=== PATIENT | male | born 1965 | race Two or more races ===

== ENCOUNTER 2020-05-30 08:12 | Outpatient (REF) | payer OTHER, SELFPAY ==
[2020-05-30 09:34] LABS: MANUAL DIFF FLAG NO
[2020-05-30 10:09] LABS: Alanine Aminotransferase 21 U/L (0-40); Alkaline Phosphatase 73 U/L (39-117); Anion Gap 9 (12-20); Aspartate Amino Transferase 19 U/L (5-37); Bilirubin Total 0.9 mg/dL (0.0-1.0); Blood Urea Nitrogen 11 mg/dL (9-16); Calcium 8.9 mg/dL (8.4-10.2); Carbon Dioxide 30 mmol/L (22-29); Chloride 105 mmol/L (96-108); Cholesterol 211 mg/dL; Estimated Glomerular Filt Rate > 60; Glucose Fasting 95 mg/dL (60-99); HDL Cholesterol 45 mg/dL; LDL Cholesterol Calculated 152 mg/dl; Potassium 4.3 mmol/l (3.3-5.1); Sodium 140 mmol/L (135-145); Total Protein 7.2 g/dL (6.5-8.0); Triglycerides 74 mg/dL
[2020-05-30 10:46] LABS: Basophils Percent Auto 0.8 % (0-2); Eosinophils Absolute Auto 0.2 X10*3/uL (0.0-0.4); Eosinophils Percent Auto 4.6 % (0-4); Hematocrit 42.7 % (42-52); Hemoglobin 13.9 g/dl (14.0-18.0); Imm Gran Abs Auto 0.01 X10*3/uL (0.00-0.03); Imm Gran Pct Auto 0.2 % (0.0-0.4); Lymphocytes Absolute Auto 1.8 X10*3/uL (1.2-4.9); Lymphocytes Percent Auto 34.4 % (20-40); Mean Corpuscular HGB Conc 32.6 g/dl (31.0-36.0); Mean Corpuscular Hemoglobin 30.3 pg (27.0-33.0); Mean Corpuscular Volume 93.2 fL (80-98); Mean Platelet Volume 11.9 fL (9.4-12.4); Monocytes Absolute Auto 0.5 X10*3/uL (0.1-1.2); Monocytes Percent Auto 9.8 % (2-11); Neutrophils Absolute Auto 2.6 X10*3/uL (2.0-8.3); Neutrophils Percent Auto 50.2 % (45-73); Platelet Count 223 X10*3/uL (160-400); Red Blood Count 4.58 X10*6/uL (4.60-5.80); Red Cell Distribution Width 12.3 % (11.0-16.0); White Blood Count 5.2 X10*3/uL (4.8-10.8)
== END 2020-05-30 08:13 | disposition home or self-care (01) ==
LOC: HO.LAB 08:12
PROVIDERS: Visit Provider Nurse Practitioner Family
DX: E78.00 Pure hypercholesterolemia, unspecified (principal); M79.18 Myalgia, other site
CPT/HCPCS: 36415; 80053; 80061; 85025

== ENCOUNTER 2020-07-23 11:22 | Emergency (ER) | payer OTHER, SELFPAY ==
--- NOTE | ~2020-07-23 | CT_ITS ---
EXAMINATION: CT ABDOMEN AND PELVIS WITH CONTRAST CLINICAL INFORMATION: Vomiting. Covid positive. COMPARISON: None TECHNIQUE: Multidetector volumetric images were obtained from the superior aspect of the liver through the pubic symphysis following administration 85 mL of Omnipaque 350 intravenous contrast. Sagittal and coronal reformatted images were obtained on the technologist's workstation. Oral contrast: Yes This CT examination was performed using dose optimization techniques as appropriate, variously including the following: *Automated exposure control *Adjustment of mA and/or kV according to patient size (this includes techniques or standardized protocols for targeted exams where dose is matched to indication/reason for exam; i.e. extremities or head) *Use of iterative reconstruction technique DLP: 579 mGy-cm FINDINGS: LUNG BASES: There is increased peripheral attenuation and interstitial markings at the lung bases. Appearance is compatible with diagnosis of Covid infection. The heart is slightly enlarged. LIVER, GALLBLADDER, AND BILIARY TREE: The liver is normal in size, shape, and attenuation. There is a small calcification in the right lobe of the liver. No focal hepatic lesion or biliary ductal dilatation is present. The gallbladder has been removed. PANCREAS: Unremarkable. SPLEEN: Unremarkable. ADRENAL GLANDS: Unremarkable. KIDNEYS AND URETERS: There is a 1.3 cm cyst in the midpole. There is mild left hydronephrosis and left proximal ureteral dilatation. No stone is seen. The right kidney is unremarkable. Bladder is not optimally distended but appears unremarkable. BLADDER: Unremarkable. GASTROINTESTINAL TRACT: There is mild diverticulosis of the colon. Small and large bowel is otherwise unremarkable. The appendix is unremarkable. Stomach is unremarkable. ABDOMINAL WALL: No significant hernia is appreciated. LYMPH NODES: Normal. VASCULAR: Unremarkable. PELVIC VISCERA: Unremarkable. OSSEOUS STRUCTURES: There are mild degenerative changes. CT/CT abdomen pelvis w con IMPRESSION: Increased peripheral attenuation and interstitial markings compatible with diagnosis of Covid infection. Upper normal-size heart. Mild diverticulosis of the colon. Mild left hydronephrosis and proximal ureteral dilatation. No stone seen. 1.3 cm left renal cyst.
--- NOTE | ~2020-07-23 | XR_ITS ---
EXAMINATION: XR CHEST CLINICAL INFORMATION: Fever and tachycardia. COMPARISON: None TECHNIQUE: Frontal view of the chest was obtained. FINDINGS: The lungs are well-expanded with reticular interstitial prominence bilaterally. No consolidation seen. There is no pleural effusion. The heart size is borderline enlarged. Pulmonary vascularity is normal. No gross bony abnormality. XR/XR chest 1V IMPRESSION: Bilateral increase interstitial prominence but no pneumonic consolidation seen.
[2020-07-23 11:34] VITALS: BP 171/80; PULSE 107; RESP 20; TEMP 38.3; O2SAT 98; BMI 28.2
--- NOTE | 2020-07-23 11:42 | ECG_ITS ---
Test Reason : CP Blood Pressure : / mmHG Vent. Rate : 096 BPM Atrial Rate : 096 BPM P-R Int : 164 ms QRS Dur : 076 ms QT Int : 324 ms P-R-T Axes : 055 -09 -13 degrees QTc Int : 409 ms Normal sinus rhythm Moderate voltage criteria for LVH, may be normal variant Nonspecific T wave abnormality Abnormal ECG No previous ECGs available Referred By: Hope Manjarrez Electronically Signed By:HEDY MURILLO
--- NOTE | 2020-07-23 11:52 | ED_ITS ---
HPI - Nausea/Vomiting/Diarrhea General Chief complaint: Nausea/Vomiting/Diarrhea Stated complaint: stomach pain,covid pos 12 days Time Seen by Provider: 07/23/20 11:37 Source: patient Mode of arrival: ambulatory Limitations: no limitations History of Present Illness HPI Narrative: 55-year-old male with a past medical history of high cholesterol, hypertension known COVID positive 12 days ago here with epigastric pain with vomiting and nausea times 10 days. The patient tells me he is taking Zofran at home with continued symptoms. He has had intermittent fevers during his illness. He denies any cough, shortness of breath, chest pain. Denies any diarrhea or urinary symptoms. Emesis is NBNB. MD elicited complaint: nausea, vomiting and abdominal pain Onset (ago): day(s) Associated nausea: Yes Associated abdominal pain: Yes Location of pain: epigastric Severity: mild Associated symptoms: fever/chills and nausea/vomiting Related Data Home Medications Medication Instructions Recorded Confirmed atorvastatin 10 mg tablet 10 mg PO BEDTIME 05/18/20 tamsulosin 0.4 mg capsule 0.4 mg PO BEDTIME 05/18/20 Previous Rx's Medication Instructions Recorded cyclobenzaprine 10 mg tablet 10 mg PO BEDTIME 30 Days #30 tab 05/18/20 nitrofurantoin macrocrystal 100 mg 100 mg PO Q12H 10 Days #20 cap 05/18/20 capsule gabapentin 300 mg capsule 300 mg PO BID #60 cap 06/17/20 omeprazole 40 mg PO DAILY #20 cap 07/23/20 ondansetron 4 mg PO Q6H PRN #20 tab 07/23/20 promethazine 25 mg tablet 25 mg PO TID PRN 7 Days #21 tab 07/23/20 sucralfate [Carafate] 1 g PO .achs #20 tab 07/23/20 Allergies Allergy/AdvReac Type Severity Reaction Status Date / Time aspirin Allergy cause anal Verified 05/18/20 16:15 bleeding Review of Systems Review of Systems: Yes all other systems are reviewed and are negative Constitutional: Constitutional: Reports no additional constitutional complaints, Denies body ache(s), Denies chills, Denies fever(s), Denies headache(s) and Denies weakness Eyes: Eyes: Reports no additional eye complaints and Denies change in vision ENT: Reports system reviewed and no additional complaints, except as documented, Denies dizziness, Denies headache(s), Denies nasal congestion, Denies nasal discharge and Denies neck pain Cardiovascular: Cardiovascular: Reports no additional cardiovascular complaints, Denies chest pain, Denies leg edema and Denies dyspnea Respiratory: Respiratory: Reports no additional respiratory complaints, Denies cough and Denies dyspnea Gastrointestinal: Gastrointestinal: Reports abdominal pain, Denies coffee ground emesis, Denies diarrhea, Reports nausea and Reports vomiting Genitourinary: Genitourinary: Denies urinary incontinence Musculoskeletal: Musculoskeletal: Reports no additional musculoskeletal complaints, Denies back pain, Denies arthralgias, Denies joint swelling, Denies neck pain, Denies numbness and Denies tingling Integumentary/Breasts: Skin/Breast: Reports system reviewed and no additional complaints, except as docu and Denies rash Neurologic: Reports system reviewed and no additional complaints, except as documented, Denies Abnormal speech present, Denies dizziness, Denies headache(s), Denies numbness, Denies tingling and Denies weakness PMFSH Past Medical History Attestation statement: The following information was validated with the patient. Source: old records reviewed and nursing notes reviewed Medical History High cholesterol HTN (hypertension) Intercostal myalgia UTI (urinary tract infection) Surgical History History of appendectomy Social History Social History Smoking Status: Never smoker Use of substances other than those prescribed or required for medical reasons: No Advance Directives: No Advance Directives Information Provided: No Physical Exam Vital Signs: Vital Signs: Last Vital Signs Temp 99.9 F 07/23/20 14:10 Pulse 101 H 07/23/20 14:10 Resp 18 07/23/20 14:10 BP 137/76 07/23/20 14:10 Pulse Ox 97 07/23/20 14:10 Body Mass Index 28.2 Const: General: cooperative, healthy appearing, comfortable and no acute distress Orientation/consciousness: patient oriented x3 Limitations: no limitations HENMT: Head: Yes normal to inspection Ears: hearing grossly normal bilatera lly General nose exam: Normal external nose present Face and sinus: Yes normal facial exam Mouth: Normal oral and palatal mucosa present Throat: Yes posterior oropharynx normal Eyes: General: appearance normal, both eyes and all related structures Pupils: Equal, round and reactive pupils present Neck: Neck: Yes normal visual inspection Chest: Chest palpation & inspection: normal inspection of the chest Resp: Effort & Inspection: normal respiratory effort Auscultation: clear to auscultation bilaterally Cardio: Rate: regular rate Rhythm: regular rhythm Peripheral pulses: Peripheral pulses 2+ throughout GI: Inspection: Yes normal to inspection Palpation (GI): Soft to palpation and Tenderness to palpation present (GI) (No rebound or guarding) in the epigastrum (Moderate) Auscultation: normal bowel sounds Back/Spine/Pelvis: Thoracic/Lumbar Spine: thoracic and lumbar spine normal to inspection Skin: General skin exam: no rashes or lesions noted Neuro: General: patient oriented x3, no focal motor deficits and normal sensation to monofilament Cranial nerves: Yes Equal, round and reactive pupils present Cognition (Neuro): normal cognition Speech: No Abnormal speech present Gait exam (Neuro): Normal gait present Motor exam (neuro): 5/5 motor strength present throughout Extrem: General: Yes normal to inspection Course Course Course Narrative: 55-year-old male known COVID positive here with epigastric pain with vomiting for 10 days. Unable to maintain p.o. despite Zofran sublingual at home. Intermittent fevers throughout course of illness. On arrival moderate epigastric tenderness. Patient is febrile and tachycardic on arrival. This is from a viral infection. Will check labs, UA, EKG. Give normal saline bolus, antiemetic, analgesia, antipyretic and re-assess. 1315-continued pain and vomiting despite medication. Will check imaging to rule out underlying pathology. 1430-CT scan is consistent with COVID. No other acute findings. Patient feels improved and is tolerating p.o.. Likely gastritis versus gastric ulcer which is stressed induced from viral illness. Discussed starting patient on PPI and also given Carafate and Zofran SL prn. Refer patient to GI for follow-up. Reviewed worrisome signs and symptoms of when to return to the emergency department. Comfortable discharge home. MDM - Nausea/Vomiting/Diarrhea MDM Narrative Medical decision making narrative: Gastritis, gastric ulcer, viral syndrome, acs, cholecystitis/lithiasis, pancreatitis. Less likely ACS with unremarkable EKG which shows no acute ischemic changes and no reports of chest pain. Less likely cholecystitis or cholelithiasis with unremarkable CT and no right upper quadrant tenderness. Less likely pancreatitis with negative lipase and CT which shows no acute finding. Medical Records Attestation: I reviewed the patient's medical records. Lab Data Attestation: I reviewed the patient's lab results. Result diagrams: 07/23/20 12:02 07/23/20 12:02 Labs: Lab Results 07/23/20 07/23/20 07/23/20 Range/Units 12:02 12: 12:02 WBC 8.5 (4.8-10.8) X10*3/uL RBC 4.54 L (4.60-5.80) X10*6/uL Hgb 13.6 L (14.0-18.0) g/dl Hct 41.6 L (42-52) % MCV 91.6 (80-98) fL MCH 30.0 (27.0-33.0) pg MCHC 32.7 (31.0-36.0) g/dl RDW 12.3 (11.0-16.0) % Plt Count 225 (160-400) X10*3/uL MPV 10.9 (9.4-12.4) fL Immature Gran % (Auto) 0.4 (0.0-0.4) % Neut % (Auto) 83.7 H (45-73) % Lymph % (Auto) 9.3 L (20-40) % [place] % (Auto) 6.5 (2-11) % Eos % (Auto) 0.0 (0-4) % Baso % (Auto) 0.1 (0-2) % Lymph # (Auto) 0.8 L (1.2-4.9) X10*3/uL [place] # (Auto) 0.6 (0.1-1.2) X10*3/uL Eos # (Auto) 0.0 (0.0-0.4) X10*3/uL Baso # (Auto) 0.0 (0.0-0.2) X10*3/uL Abs Immat Gran (auto) 0.03 (0.00-0.03) X10*3/uL Absolute Neuts (auto) 7.1 (2.0-8.3) X10*3/uL Absolute Nucleated RBC 0.000 (0.0-0.012) X10*3/uL Nucleated RBC % (auto) 0.0 (0.0-0.2) /100WBC Sodium 137 (135-145) mmol/L Potassium 3.8 (3.3-5.1) mmol/L Chloride 97 (96-108) mmol/L Carbon Dioxide 29 (22-29) mmol/L Anion Gap 15 (12-20) BUN 10 (9-16) mg/dL Creatinine 1.29 (0.5-1.4) mg/dL Estim Creat Clear Calc 62.5 Estimated GFR 57 Random Glucose 105 (60-115) mg/dL Lactic Acid 1.6 (0.5-2.0) mmol/L Calcium 8.8 (8.4-10.2) mg/dL Magnesium 2.2 (1.6-2.6) mg/dL Total Bilirubin 0.7 (0.0-1.0) mg/dL Direct Bilirubin 0.3 (0.0-0.5) mg/dL AST 71 H (5-37) U/L ALT 102 H (0-40) U/L Alkaline Phosphatase 120 H D (39-117) U/L Total Protein 7.6 (6.5-8.0) g/dL Albumin 4.0 (3.5-5.0) g/dL Lipase (8-78) U/L Urine Color Urine Appearance Urine pH (5.0-8.0) Ur Specific [place] (1.005-1.025) Urine Protein (NEG-TRACE) MG/DL Urine Glucose (UA) (NEG) MG/DL Urine Ketones (NEG) MG/DL Urine Blood (NEG) Urine Nitrite (NEG) Ur Leukocyte Esterase (NEG) 07/23/20 07/23/20 Range/Units 12:02 13:00 WBC (4.8-10.8) X10*3/uL RBC (4.60-5.80) X10*6/uL Hgb (14.0-18.0) g/dl Hct (42-52) % MCV (80-98) fL MCH (27.0-33.0) pg MCHC (31.0-36.0) g/dl RDW (11.0-16.0) % Plt Count (160-400) X10*3/uL MPV (9.4-12.4) fL Immature Gran % (Auto) (0.0-0.4) % Neut % (Auto) (45-73) % Lymph % (Auto) (20-40) % [place] % (Auto) (2-11) % Eos % (Auto) (0-4) % Baso % (Auto) (0-2) % Lymph # (Auto) (1.2-4.9) X10*3/uL [place] # (Auto) (0.1-1.2) X10*3/uL Eos # (Auto) (0.0-0.4) X10*3/uL Baso # (Auto) (0.0-0.2) X10*3/uL Abs Immat Gran (auto) (0.00-0.03) X10*3/uL Absolute Neuts (auto) (2.0-8.3) X10*3/uL Absolute Nucleated RBC (0.0-0.012) X10*3/uL Nucleated RBC % (auto) (0.0-0.2) /100WBC Sodium (135-145) mmol/L Potassium (3.3-5.1) mmol/L Chloride (96-108) mmol/L Carbon Dioxide (22-29) mmol/L Anion Gap (12-20) BUN (9-16) mg/dL Creatinine (0.5-1.4) mg/dL Estim Creat Clear Calc Estimated GFR Random Glucose (60-115) mg/dL Lactic Acid (0.5-2.0) mmol/L Calcium (8.4-10.2) mg/dL Magnesium (1.6-2.6) mg/dL Total Bilirubin (0.0-1.0) mg/dL Direct Bilirubin (0.0-0.5) mg/dL AST (5-37) U/L ALT (0-40) U/L Alkaline Phosphatase (39-117) U/L Total Protein (6.5-8.0) g/dL Albumin (3.5-5.0) g/dL Lipase 30 (8-78) U/L Urine Color YELLOW Urine Appearance CLEAR Urine pH 5.0 (5.0-8.0) Ur Specific [place] >= 1.030 H (1.005-1.025) Urine Protein NEG (NEG-TRACE) MG/DL Urine Glucose (UA) 500 H (NEG) MG/DL Urine Ketones NEG (NEG) MG/DL Urine Blood NEG (NEG) Urine Nitrite NEG (NEG) Ur Leukocyte Esterase NEG (NEG) Imaging Data Chest x-ray: Attestation: I personally reviewed and interpreted this imaging study as follows: Radiologist's impression: [address] [id number] ReportSigned Patient: Benito LugoR#: [id number]: 1965Acct:[id number]/Sex: 55 / MADM Date: 07/23/20Loc: [address]: Ordering Physician: BETZAIDA EVERETT NP Date of Service: 07/23/20 Procedure(s): XR chest 1V Accession Number(s): [id number] cc: BETZAIDA EVERETT NP~ EXAMINATION: XR CHEST CLINICAL INFORMATION: Fever and tachycardia. COMPARISON: None TECHNIQUE: Frontal view of the chest was obtained. FINDINGS: The lungs are well-expanded with reticular interstitial prominence bilaterally. No consolidation seen. There is no pleural effusion. The heart size is borderline enlarged. Pulmonary vascularity is normal. No gross bony abnormality. XR/XR chest 1V IMPRESSION: Bilateral increase interstitial prominence but no pneumonic consolidation seen. CT scan - abdomen: Attestation: I personally reviewed and interpreted this imaging study as follows: Radiologist's impression: [address] [id number] Scan ReportSigned Patient: Benito LugoR#: [id number]: 1965Acct:[id number]/Sex: 55 / MADM Date: 07/23/20Loc: [address]: Ordering Physician: BETZAIDA EVERETT NP Date of Service: 07/23/20 Procedure(s): CT abdomen pelvis w con Accession Number(s): [id number] cc: BETZAIDA EVERETT [employer]~ EXAMINATION: CT ABDOMEN AND PELVIS WITH CONTRAST CLINICAL INFORMATION: Vomiting. Covid positive. COMPARISON: None TECHNIQUE: Multidetector volumetric images were obtained from the superior aspect of the liver through the pubic symphysis following administration 85 mL of Omnipaque 350 intravenous contrast. Sagittal and coronal reformatted images were obtained on the technologist's workstation. Oral contrast: Yes This CT examination was performed using dose optimization techniques as appropriate, variously including the following: *Automated exposure control *Adjustment of mA and/or kV according to patient size (this includes techniques or standardized protocols for targeted exams where dose is matched to indication/reason for exam; i.e. extremities or head) *Use of iterative reconstruction technique DLP: 579 mGy-cm FINDINGS: LUNG BASES: There is increased peripheral attenuation and interstitial markings at the lung bases. Appearance is compatible with diagnosis of Covid infection. The heart is slightly enlarged. LIVER, GALLBLADDER, AND BILIARY TREE: The liver is normal in size, shape, and attenuation. There is a small calcification in the right lobe of the liver. No focal hepatic lesion or biliary ductal dilatation is present. The gallbladder has been removed. PANCREAS: Unremarkable. SPLEEN: Unremarkable. ADRENAL GLANDS: Unremarkable. KIDNEYS AND URETERS: There is a 1.3 cm cyst in the midpole. There is mild left hydronephrosis and left proximal ureteral dilatation. No stone is seen. The right kidney is unremarkable. Bladder is not optimally distended but appears unremarkable. BLADDER: Unremarkable. GASTROINTESTINAL TRACT: There is mild diverticulosis of the colon. Small and large bowel is otherwise unremarkable. The appendix is unremarkable. Stomach is unremarkable. ABDOMINAL WALL: No significant hernia is appreciated. LYMPH NODES: Normal. VASCULAR: Unremarkable. PELVIC VISCERA: Unremarkable. OSSEOUS STRUCTURES: There are mild degenerative changes. CT/CT abdomen pelvis w con IMPRESSION: Increased peripheral attenuation and interstitial markings compatible with diagnosis of Covid infection. Upper normal-size heart. Mild diverticulosis of the colon. Mild left hydronephrosis and proximal ureteral dilatation. No stone seen. 1.3 cm left renal cyst. ECG Data ECG interpretation date: 07/23/20 ECG interpretation time: 12:57 Interpretation: NSR, rate 96, normal pr, normal qrs, normal st Discharge Plan Discharge Clinical Impression: Gastritis, COVID-19 Patient Disposition: Home, Self-Care Instructions: Gastritis (ED), COVID-19 (Coronavirus Disease 2019) (ED) Additional Instructions: Very bland diet. Eat things like boiled chicken and plain white rice and crackers and toast. Do not eat fatty, greasy, citrus foods. Avoid dairy, caffeine, alcohol or smoking. Follow-up with gastroenterology once cleared from [facility] Prescriptions: New sucralfate [Carafate] 1 gram tablet 1 g PO .achs Qty: 20 RF: 0 omeprazole 40 mg capsule,delayed release(DR/EC) 40 mg PO DAILY Qty: 20 RF: 0 ondansetron 4 mg tablet,disintegrating 4 mg PO Q6H PRN (Reason: nausea and vomiting) Qty: 20 RF: 0 No Action gabapentin 300 mg capsule 300 mg PO BID Qty: 60 RF: 0 promethazine 25 mg tablet 25 mg PO TID PRN (Reason: nausea and vomiting) 7 Days Qty: 21 RF: 0 atorvastatin 10 mg tablet 10 mg PO BEDTIME RF: 0 tamsulosin 0.4 mg capsule 0.4 mg PO BEDTIME RF: 0 nitrofurantoin macrocrystal 100 mg capsule 100 mg PO Q12H 10 Days Qty: 20 RF: 0 cyclobenzaprine 10 mg tablet 10 mg PO BEDTIME 30 Days Qty: 30 RF: 0 Referrals: Eugenio Pittman MD [Physician] - 2 days
[2020-07-23] MEDS: Acetaminophen 325 MG TABLET 975 MG PO (12:17)
[2020-07-23] MEDS: Famotidine/PF 20 MG/2 ML VIAL IVPUSH (12:18)
[2020-07-23] MEDS: ondansetron HCL 4 MG/2 ML VIAL IVPUSH (12:18)
[2020-07-23] MEDS: 0.9 % Sodium Chloride 2,500 ML 999 ML IV (12:22)
[2020-07-23 12:25] LABS: MANUAL DIFF FLAG NO
[2020-07-23 12:33] LABS: Basophils Percent Auto 0.1 % (0-2); Hematocrit 41.6 % (42-52); Hemoglobin 13.6 g/dl (14.0-18.0); Imm Gran Abs Auto 0.03 X10*3/uL (0.00-0.03); Imm Gran Pct Auto 0.4 % (0.0-0.4); Lymphocytes Absolute Auto 0.8 X10*3/uL (1.2-4.9); Lymphocytes Percent Auto 9.3 % (20-40); Mean Corpuscular HGB Conc 32.7 g/dl (31.0-36.0); Mean Corpuscular Volume 91.6 fL (80-98); Mean Platelet Volume 10.9 fL (9.4-12.4); Monocytes Absolute Auto 0.6 X10*3/uL (0.1-1.2); Monocytes Percent Auto 6.5 % (2-11); Neutrophils Absolute Auto 7.1 X10*3/uL (2.0-8.3); Neutrophils Percent Auto 83.7 % (45-73); Platelet Count 225 X10*3/uL (160-400); Red Blood Count 4.54 X10*6/uL (4.60-5.80); Red Cell Distribution Width 12.3 % (11.0-16.0); White Blood Count 8.5 X10*3/uL (4.8-10.8)
[2020-07-23 12:39] LABS: Lactic Acid 1.6 mmol/L (0.5-2.0)
[2020-07-23 13:10] LABS: Lipase 30 U/L (8-78)
[2020-07-23 13:15] LABS: Alanine Aminotransferase 102 U/L (0-40); Alkaline Phosphatase 120 U/L (39-117); Anion Gap 15 (12-20); Aspartate Amino Transferase 71 U/L (5-37); Bilirubin Direct 0.3 mg/dL (0.0-0.5); Bilirubin Total 0.7 mg/dL (0.0-1.0); Blood Urea Nitrogen 10 mg/dL (9-16); Calcium 8.8 mg/dL (8.4-10.2); Carbon Dioxide 29 mmol/L (22-29); Chloride 97 mmol/L (96-108); Creatinine Clr Calc Pharmacy 62.5; Estimated Glomerular Filt Rate 57; Glucose Random 105 mg/dL (60-115); Magnesium 2.2 mg/dL (1.6-2.6); Potassium 3.8 mmol/L (3.3-5.1); Sodium 137 mmol/L (135-145); Total Protein 7.6 g/dL (6.5-8.0)
[2020-07-23 13:38] LABS: Appearance Urine CLEAR; Color Urine YELLOW; Glucose Urine UA 500 MG/DL (NEG); Leukocyte Esterase Urine NEG (NEG); Nitrite Urine NEG (NEG); Specific Gravity - Urine >= 1.030 (1.005-1.025); Urine Blood NEG (NEG); Urine Ketones NEG (NEG); Urine Protein NEG (NEG-TRACE)
[2020-07-23 14:10] VITALS: BP 137/76; PULSE 101; RESP 18; TEMP 37.7; O2SAT 97
--- NOTE | 2020-07-23 14:12 | PC.NURSE ---
pt back from ct, reports nausea improved but the pain still there about 8/10 at this time, vs stable
[2020-07-23] MEDS: iohexoL 350 MG/ML 100 ML INFUS..BTL 85 ML IV (14:15)
--- NOTE | 2020-07-23 15:16 | PC.NURSE ---
pt tolerating po, no vomiting since his arrival in the ed
[2020-07-23] MEDS: Lidocaine HCl Viscous 2 % 15 ML SOLUTION MUCOUS MEM (15:29)
[2020-07-23] MEDS: Magnesium Hydrox/Alum Hydrox 30 ML ORAL.SUSP PO (15:29)
[2020-07-23 16:00] VITALS: BP 120/70; PULSE 90; RESP 18; TEMP 37.2; O2SAT 97
== END 2020-07-23 17:45 | disposition home or self-care (01) ==
PROVIDERS: Nurse Practitioner Family; Emergency Provider Emergency Medicine; PCP Internal Medicine
DX: K29.70 Gastritis, unspecified, without bleeding (principal); K57.90 Diverticulosis of intestine, part unspecified, without perforation or abscess without bleeding; Z86.16 Personal history of COVID-19; R50.9 Fever, unspecified; R00.0 Tachycardia, unspecified; N28.1 Cyst of kidney, acquired; N13.30 Unspecified hydronephrosis; I10 Essential (primary) hypertension; Z87.440 Personal history of urinary (tract) infections
CPT/HCPCS: 36415; 71045; 74177; 80048; 80076; 81003; 83605; 83690; 83735; 85025; 87040; 93005; 96361; 96374; 96375; 99284; J2405; Q9967

== ENCOUNTER 2020-07-24 11:30 | Emergency (ER) | payer OTHER, SELFPAY ==
[2020-07-24 11:45] VITALS: BP 135/75; PULSE 88; RESP 18; TEMP 37.4; O2SAT 96; BMI 28.2
--- NOTE | 2020-07-24 11:51 | ED_ITS ---
HPI - Abdominal Pain General Chief Complaint: Abdominal Pain Stated Complaint: abd pain Time Seen by Provider: 07/24/20 11:47 Source: patient Mode of arrival: ambulatory Limitations: no limitations History of Present Illness HPI narrative: 55 y/o male with recently diagnosed COVID-19 who presents back to the ER with persistent epigastric pain and nausea and vomiting for the last 9-10 days. He was seen here yesterday for the same - he had unremarkable workup and normal CT scan. He was able to tolerate PO here yesterday and was discharged with Carafate and PPI, which he says he took last night. He did not eat dinner last night./ He reports since discharge he has been vomiting after every time he eats. Today he had Jello and pedrito felecia and 30 mins later vomited. He also had 3 episodes of diarrhea this morning. No chest pain, SOB. MD elicited complaint: abdominal pain and other (vomiting ) Pertinent past history: other (COVID-19 ) Onset (ago): day(s) (9) Pain Consistency: intermittent Location: epigastric Severity: moderate Quality: aching and burning Radiation: none Migration to: no migration Exacerbating factors: eating Relieving factors: nothing Associated symptoms: nausea, vomiting and fever Related Data Home Medications Medication Instructions Recorded Confirmed atorvastatin 10 mg tablet 10 mg PO BEDTIME 05/18/20 tamsulosin 0.4 mg capsule 0.4 mg PO BEDTIME 05/18/20 Previous Rx's Medication Instructions Recorded cyclobenzaprine 10 mg tablet 10 mg PO BEDTIME 30 Days #30 tab 05/18/20 nitrofurantoin macrocrystal 100 mg 100 mg PO Q12H 10 Days #20 cap 05/18/20 capsule gabapentin 300 mg capsule 300 mg PO BID #60 cap 06/17/20 omeprazole 40 mg PO DAILY #20 cap 07/23/20 ondansetron 4 mg PO Q6H PRN #20 tab 07/23/20 promethazine 25 mg tablet 25 mg PO TID PRN 7 Days #21 tab 07/23/20 sucralfate [Carafate] 1 g PO .achs #20 tab 07/23/20 loperamide [Imodium A-D] 2 mg PO Q4H PRN #14 cap 07/24/20 promethazine 25 mg NH Q6H PRN #12 ea 07/24/20 Allergies Allergy/AdvReac Type Severity Reaction Status Date / Time aspirin Allergy cause anal Verified 05/18/20 16:15 bleeding Review of Systems Review of Systems Constitutional: + Fever, No Chills ENT/Mouth: No sore throat, No Rhinorrhea, No Swallowing Difficulty Eyes: No Eye Pain, No Swelling, No Redness Cardiovascular: No Chest Pain, No SOB, No Orthopnea, No Edema Respiratory: No Cough, No Sputum, No Wheezing, No dyspnea Gastrointestinal: + Nausea, + Vomiting, No Diarrhea, + abdominal Pain Genitourinary: No Dysuria, No Urinary Frequency, No Hematuria Musculoskeletal: No joint pain, No Myalgias Skin: No Skin Lesions, No rash Neuro: No Weakness, No Numbness, No Dizziness, No Headache Psych: + Anxiety/Panic, No Depression Heme/Lymph: No Bruising, No Lymphadenopathy Endocrine: No Polyuria, No Polydipsia Physical Exam Vital Signs: Vital Signs: Last Vital Signs Temp 99.4 F 07/24/20 11:45 Pulse 90 07/24/20 13:53 Resp 16 07/24/20 13:53 BP 137/75 07/24/20 13:53 Pulse Ox 95 07/24/20 13:53 Body Mass Index 28.2 Appearance: Alert. Oriented X3. Appears uncomfortable. Eyes: Pupils equal, round and reactive to light. ENT: Pharynx normal. Neck: Normal inspection. Neck supple. CVS: Normal heart rate and rhythm. Pulses normal. Respiratory: No respiratory distress. Breath sounds normal. Abdomen: Softly distended, epigastric tenderness without rebound or guarding. Negative Jain's sign. +BS x4 Skin: Skin warm and dry. Normal skin color. Normal skin turgor. No rashes. Extremities: No lower extremity edema. Neuro: Oriented X 3. No motor deficit. No sensory deficit. Course Course Course Narrative: 55 y/o male presenting with 9-10 days of abdominal pain, N/V/D since he was diagnosed with COVID-19. Seen here yesterday for the same with unremarkable workup. Will get repeat labs and give GI cocktail, IVF and zofran. Will monitor closely. Reevaluation(s) Reevaluation #1: Lab workup is unremarkable, aside from slight drop in H/H. Denies bloody vomitus or stool. He is sleeping comfortably. No vomiting in the 2.5 hours that he has been in the ED. Will give PO trial. Reevaluation #2: Patient is tolerating PO. Stable for discharge. MDM - Abdominal Pain Lab Data Result diagrams: 07/24/20 12:04 07/24/20 12:04 Labs: Lab Results 07/24/20 07/24/20 Range/Units 12:04 12:04 WBC 7.9 (4.8-10.8) X10*3/uL RBC 4.09 L (4.60-5.80) X10*6/uL Hgb 12.4 L (14.0-18.0) g/dl Hct 36.9 L (42-52) % MCV 90.2 (80-98) fL MCH 30.3 (27.0-33.0) pg MCHC 33.6 (31.0-36.0) g/dl RDW 12.4 (11.0-16.0) % Plt Count 235 (160-400) X10*3/uL MPV 10.3 (9.4-12.4) fL Immature Gran % (Auto) 0.3 (0.0-0.4) % Neut % (Auto) 83.1 H (45-73) % Lymph % (Auto) 9.7 L (20-40) % Toombs % (Auto) 6.9 (2-11) % Eos % (Auto) 0.0 (0-4) % Baso % (Auto) 0.0 (0-2) % Lymph # (Auto) 0.8 L (1.2-4.9) X10*3/uL [place]ombs # (Auto) 0.5 (0.1-1.2) X10*3/uL Eos # (Auto) 0.0 (0.0-0.4) X10*3/uL Baso # (Auto) 0.0 (0.0-0.2) X10*3/uL Abs Immat Gran (auto) 0.02 (0.00-0.03) X10*3/uL Absolute Neuts (auto) 6.6 (2.0-8.3) X10*3/uL Absolute Nucleated RBC 0.000 (0.0-0.012) X10*3/uL Nucleated RBC % (auto) 0.0 (0.0-0.2) /100WBC Sodium 138 (135-145) mmol/L Potassium 3.4 (3.3-5.1) mmol/L Chloride 102 (96-108) mmol/L Carbon Dioxide 26 (22-29) mmol/L Anion Gap 13 (12-20) BUN 7 L (9-16) mg/dL Creatinine 1.10 (0.5-1.4) mg/dL Estim Creat Clear Calc 73.3 Estimated GFR > 60 Random Glucose 109 (60-115) mg/dL Calcium 7.7 L D (8.4-10.2) mg/dL Magnesium 1.9 (1.6-2.6) mg/dL Total Bilirubin 0.7 (0.0-1.0) mg/dL Direct Bilirubin 0.3 (0.0-0.5) mg/dL AST 46 H (5-37) U/L ALT 74 H (0-40) U/L Alkaline Phosphatase 108 (39-117) U/L Total Protein 6.7 (6.5-8.0) g/dL Albumin 3.5 (3.5-5.0) g/dL Discharge Plan Discharge Clinical Impression: COVID-19 Vomiting Qualifiers: Vomiting type: unspecified Vomiting Intractability: intractable Nausea presence: with nausea Qualified Code(s): R11.2 - Nausea with vomiting, unspecified Patient Disposition: Home, Self-Care Instructions: Acute Nausea and Vomiting (ED) Additional Instructions: Your lab workup today was unremarkable. Continue to take the prescribed medications for your stomach that were given to you yesterday. Use the newly prescribed suppository as needed for nausea and vomiting. Stick to a bland diet until you are feeling better. Follow up with your doctor tomorrow. Follow up with the GI doctor. Prescriptions: New promethazine 25 mg suppository 25 mg NH Q6H PRN (Reason: nausea and vomiting) Qty: 12 RF: 0 loperamide [Imodium A-D] 2 mg capsule 2 mg PO Q4H PRN (Reason: loose stool) Qty: 14 RF: 0 No Action gabapentin 300 mg capsule 300 mg PO BID Qty: 60 RF: 0 promethazine 25 mg tablet 25 mg PO TID PRN (Reason: nausea and vomiting) 7 Days Qty: 21 RF: 0 sucralfate [Carafate] 1 gram tablet 1 g PO .achs Qty: 20 RF: 0 omeprazole 40 mg capsule,delayed release(DR/EC) 40 mg PO DAILY Qty: 20 RF: 0 ondansetron 4 mg tablet,disintegrating 4 mg PO Q6H PRN (Reason: nausea and vomiting) Qty: 20 RF: 0 atorvastatin 10 mg tablet 10 mg PO BEDTIME RF: 0 tamsulosin 0.4 mg capsule 0.4 mg PO BEDTIME RF: 0 nitrofurantoin macrocrystal 100 mg capsule 100 mg PO Q12H 10 Days Qty: 20 RF: 0 cyclobenzaprine 10 mg tablet 10 mg PO BEDTIME 30 Days Qty: 30 RF: 0 Referrals: Blanca Benavides MD [Physician] - 2 days (epigastric pain) Print Language: [place] [facility] Past Medical History Medical History High cholesterol HTN (hypertension) Intercostal myalgia UTI (urinary tract infection) Surgical History History of appendectomy Social History Social History Smoking Status: Never smoker Advance Directives: No Advance Directives Information Provided: No
[2020-07-24] MEDS: 0.9 % Sodium Chloride 1,000 ML 999 ML IVCONT (12:01)
[2020-07-24 12:11] LABS: MANUAL DIFF FLAG NO
[2020-07-24 12:14] LABS: Hematocrit 36.9 % (42-52); Hemoglobin 12.4 g/dl (14.0-18.0); Imm Gran Abs Auto 0.02 X10*3/uL (0.00-0.03); Imm Gran Pct Auto 0.3 % (0.0-0.4); Lymphocytes Absolute Auto 0.8 X10*3/uL (1.2-4.9); Lymphocytes Percent Auto 9.7 % (20-40); Mean Corpuscular HGB Conc 33.6 g/dl (31.0-36.0); Mean Corpuscular Hemoglobin 30.3 pg (27.0-33.0); Mean Corpuscular Volume 90.2 fL (80-98); Mean Platelet Volume 10.3 fL (9.4-12.4); Monocytes Absolute Auto 0.5 X10*3/uL (0.1-1.2); Monocytes Percent Auto 6.9 % (2-11); Neutrophils Absolute Auto 6.6 X10*3/uL (2.0-8.3); Neutrophils Percent Auto 83.1 % (45-73); Platelet Count 235 X10*3/uL (160-400); Red Blood Count 4.09 X10*6/uL (4.60-5.80); Red Cell Distribution Width 12.4 % (11.0-16.0); White Blood Count 7.9 X10*3/uL (4.8-10.8)
[2020-07-24] MEDS: LORazepam 2 MG/ML VIAL 0.5 MG IVPUSH (12:14)
[2020-07-24] MEDS: ondansetron HCL 4 MG/2 ML VIAL IVPUSH (12:15)
[2020-07-24] MEDS: Omeprazole 40 MG CAPSULE.DR PO (12:16)
[2020-07-24] MEDS: Magnesium Hydrox/Alum Hydrox 30 ML ORAL.SUSP PO (12:17)
[2020-07-24] MEDS: Lidocaine HCl Viscous 2 % 15 ML SOLUTION MUCOUS MEM (12:17)
[2020-07-24 12:42] LABS: Alanine Aminotransferase 74 U/L (0-40); Albumin Level 3.5 g/dL (3.5-5.0); Alkaline Phosphatase 108 U/L (39-117); Anion Gap 13 (12-20); Aspartate Amino Transferase 46 U/L (5-37); Bilirubin Direct 0.3 mg/dL (0.0-0.5); Bilirubin Total 0.7 mg/dL (0.0-1.0); Blood Urea Nitrogen 7 mg/dL (9-16); Calcium 7.7 mg/dL (8.4-10.2); Carbon Dioxide 26 mmol/L (22-29); Chloride 102 mmol/L (96-108); Creatinine Clr Calc Pharmacy 73.3; Estimated Glomerular Filt Rate > 60; Glucose Random 109 mg/dL (60-115); Magnesium 1.9 mg/dL (1.6-2.6); Potassium 3.4 mmol/L (3.3-5.1); Sodium 138 mmol/L (135-145); Total Protein 6.7 g/dL (6.5-8.0)
[2020-07-24 13:53] VITALS: BP 137/75; PULSE 90; RESP 16; O2SAT 95
== END 2020-07-24 16:45 | disposition home or self-care (01) ==
PROVIDERS: Physician Assistant; Emergency Provider Emergency Medicine Emergency Medical Services; PCP Internal Medicine
DX: U07.1 COVID-19 (principal); R10.13 Epigastric pain; R50.9 Fever, unspecified; R11.2 Nausea with vomiting, unspecified
CPT/HCPCS: 36415; 80048; 80076; 83735; 85025; 96361; 96374; 96375; 99283; 99284; J2060; J2405

== ENCOUNTER 2020-11-13 09:27 | Outpatient (REF) | payer OTHER, SELFPAY ==
[2020-11-13 10:12] LABS: MANUAL DIFF FLAG NO
[2020-11-13 10:16] LABS: Basophils Percent Auto 0.8 % (0-2); Eosinophils Absolute Auto 0.1 X10*3/uL (0.0-0.4); Eosinophils Percent Auto 2.1 % (0-4); Hemoglobin 14.1 g/dl (14.0-18.0); Imm Gran Abs Auto 0.01 X10*3/uL (0.00-0.03); Imm Gran Pct Auto 0.2 % (0.0-0.4); Lymphocytes Absolute Auto 1.6 X10*3/uL (1.2-4.9); Lymphocytes Percent Auto 29.6 % (20-40); Mean Corpuscular Hemoglobin 29.9 pg (27.0-33.0); Mean Corpuscular Volume 93.4 fL (80-98); Mean Platelet Volume 11.1 fL (9.4-12.4); Monocytes Absolute Auto 0.5 X10*3/uL (0.1-1.2); Monocytes Percent Auto 8.7 % (2-11); Neutrophils Absolute Auto 3.1 X10*3/uL (2.0-8.3); Neutrophils Percent Auto 58.6 % (45-73); Platelet Count 215 X10*3/uL (160-400); Red Blood Count 4.71 X10*6/uL (4.60-5.80); Red Cell Distribution Width 12.5 % (11.0-16.0); White Blood Count 5.3 X10*3/uL (4.8-10.8)
[2020-11-13 10:41] LABS: Alanine Aminotransferase 15 U/L (0-40); Albumin Level 4.3 g/dL (3.5-5.0); Alkaline Phosphatase 83 U/L (39-117); Anion Gap 12 (12-20); Aspartate Amino Transferase 18 U/L (5-37); Bilirubin Total 0.8 mg/dL (0.0-1.0); Blood Urea Nitrogen 13 mg/dL (9-16); Calcium 9.2 mg/dL (8.4-10.2); Carbon Dioxide 26 mmol/L (22-29); Chloride 105 mmol/L (96-108); Cholesterol 227 mg/dL; Estimated Glomerular Filt Rate > 60; Glucose Fasting 90 mg/dL (60-99); HDL Cholesterol 50 mg/dL; LDL Cholesterol Calculated 161 mg/dl; Sodium 139 mmol/L (135-145); Total Protein 7.7 g/dL (6.5-8.0); Triglycerides 83 mg/dL
[2020-11-13 10:44] LABS: Glucose Urine UA NEG (NEG); Leukocyte Esterase Urine NEG (NEG); Nitrite Urine NEG (NEG); Specific Gravity - Urine 1.015 (1.005-1.025); Urine Blood 2+ (NEG); Urine Ketones NEG (NEG); Urine Protein NEG (NEG-TRACE)
[2020-11-13 10:46] LABS: Appearance Urine CLEAR; Color Urine YELLOW
[2020-11-13 10:55] LABS: Squamous Epithelial Cell Urine 1+ /LPF; WBC Urine 0 /HPF (0-4)
[2020-11-17 11:52] LABS: Vitamin D 25-OH, D2 <4 ng/mL; Vitamin D 25-OH, D3 30 ng/mL; Vitamin D 25-OH, Total 30 ng/mL (30-100)
== END 2020-11-13 09:28 | disposition home or self-care (01) ==
LOC: HO.LAB 09:27
PROVIDERS: Nurse Practitioner Family; PCP Internal Medicine; Visit Provider Internal Medicine
DX: E78.00 Pure hypercholesterolemia, unspecified (principal); E78.5 Hyperlipidemia, unspecified; E55.9 Vitamin D deficiency, unspecified; D64.9 Anemia, unspecified
CPT/HCPCS: 36415; 80053; 80061; 81001; 82306; 85025

== ENCOUNTER → 2020-11-15 14:01 | Outpatient (BNVA) | payer OTHER, SELFPAY | PROVIDERS: PCP Internal Medicine; Visit Provider Anesthesiology | DX: M47.816 Spondylosis without myelopathy or radiculopathy, lumbar region (principal) | CPT/HCPCS: 99202 ==

== ENCOUNTER 2020-11-27 10:11 | Outpatient (REF) | payer OTHER, SELFPAY ==
[2020-11-27 13:56] LABS: Urine Cytology See Pathology rpt
== END 2020-11-27 10:12 | disposition home or self-care (01) ==
LOC: HO.LNP 10:11
PROVIDERS: PCP Internal Medicine; Visit Provider Urology
DX: R31.29 Other microscopic hematuria (principal)
CPT/HCPCS: 88112; 99202

== ENCOUNTER → 2021-01-22 13:56 | Outpatient (BNVA) | payer OTHER, SELFPAY | PROVIDERS: PCP Internal Medicine; Visit Provider Urology | DX: N30.91 Cystitis, unspecified with hematuria (principal) | CPT/HCPCS: 52000; 99212 ==

== ENCOUNTER 2021-02-13 15:34 | Outpatient (RCR) | payer OTHER, SELFPAY ==
--- NOTE | 2021-02-13 17:00 | MHC.PT.EP ---
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 He has a history of chronic LBP resulting in pain and difficulty with all ADL's, functional mobility, sitting, walking, lifting, and bed mobility (bridging). Examination shows decreased lumbar AROM, decreased core/LE strength, LE DTR's WFL, sensation intact to light touch, impaired gait, and impaired postural awareness. Recommend PT 2x/week for 5 weeks to address impairments, implement HEP, and optimize functional mobility. POC to include lumbar A/AAROM, HS/hip flexor/quad stretching, core stabilization, taping. Frequency and Duration: The patient will be seen 2x/week for 5 weeks Short Term Goals: 3 weeks 1. I with HEP 2. improve lumbar extension to 50% Prison Goals: 5 weeks 1. I with HEP and self managemnet of sx 2. Pt will be able to sit with lumbar roll > 60min with pain < 3/10 3. Pt will be able to bridge during bed mobility with pain < 3/10 Treatment Plan: Modalities to reduce pain, spasms and effusion. Manual therapy to restore motion and function. Therapeutic exercise to improve strength and flexibility. Neuromuscular re-education for posture and balance. Therapeutic activities to return to functional activities of daily living. Electronically signed by: Paradise Junior PT Please sign and return to therapist. Thank you for your referral.
--- NOTE | 2021-03-14 14:44 | MHC.PT.DC ---
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 Electronically signed by: Paradise Junior PT Please sign and return to therapist. Thank you for your referral.
== END 2021-03-14 14:44 | disposition home or self-care (01) ==
LOC: HO.PT 15:34
PROVIDERS: PCP Internal Medicine; Visit Provider Anesthesiology
DX: M47.816 Spondylosis without myelopathy or radiculopathy, lumbar region (principal)
CPT/HCPCS: 97110; 97161

== ENCOUNTER 2021-03-04 06:42 | Day surgery (SDC) | payer OTHER, SELFPAY ==
[2021-02-26 12:34] VITALS: BMI 27.4
[2021-02-26 12:38] VITALS: BMI 27.4
--- NOTE | 2021-03-01 10:44 | HO.ANESPROP2 ---
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 Active Problems Active Problems: All Active Problems (Updated 02/26/21 @ 13:37 by Estrellita Zavala RN) COVID-19 (Acute) COVID-19 (Acute) Microscopic hematuria (Acute) Cystitis (Acute) Spondylosis of lumbar region without myelopathy or radiculopathy (Acute) Thoracic spine pain (Acute) Blurry vision (Acute) Hematuria (Acute) Anxiety (Acute) High cholesterol (Acute) Intercostal myalgia (Acute) UTI (urinary tract infection) (Acute) Past Medical History 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 Thoracic spine pain UTI (urinary tract infection) Family History Family History Mother Hypertension Father Diabetes Dementia Surgical History Surgical History History of appendectomy Social History Social History Housing: House Alcohol intake: never Patient Tobacco Use Status: Never used Tobacco e-Cigarette/Vaping Use: Never Used Second Hand Smoke Exposure: No Use of substances other than those prescribed or required for medical reasons: No Advance Directives Information Provided: No service: No Current occupational status: employed Current occupational exposures/hazards: No Meds Allergies Allergy/AdvReac Type Severity Reaction Status Date / Time aspirin Allergy cause anal Verified 01/29/21 17:22 bleeding Exam Exam Date and Time: March 01, 2021 1044 Height,Weight and Vital Signs: Height 5 ft 6 in Weight 77.111 kg Pertinent Lab Results Pertinent Lab Results: Laboratory Tests 11/13/20 11/13/20 09:45 09:45 WBC 5.3 Hgb 14.1 Hct 44.0 Plt Count 215 Sodium 139 Potassium 4.0 Chloride 105 Carbon Dioxide 26 BUN 13 D Creatinine 1.16 Narrative Narrative: EKG 07/2020 Vent. Rate : 096 BPM ? ? Atrial Rate : 096 BPM ?? P-R Int : 164 ms? QRS Dur : 076 ms ? ? QT Int : 324 ms ? ? ? P-R-T Axes : 055 -09 -13 degrees ?? QTc Int : 409 ms ? Normal sinus rhythm Moderate voltage criteria for LVH, may be normal variant Nonspecific T wave abnormality Abnormal ECG No previous ECGs available Assessment and Plan Assessment Anesthesia Assessment: Chart Reviewed Documented by User: Sapna Jiang MD 03/04/21 10:14 PMF Past Medical History 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 Thoracic spine pain UTI (urinary tract infection) Family History Family History Mother Hypertension Father Diabetes Dementia Family history of problems with anesthesia: No Surgical History Surgical History History of appendectomy History of Problems with Anesthesia: No Social History Social History Housing: House Alcohol intake: never Patient Tobacco Use Status: Never used Tobacco e-Cigarette/Vaping Use: Never Used Second Hand Smoke Exposure: No Use of substances other than those prescribed or required for medical reasons: No Advance Directives Information Provided: No service: No Current occupational status: employed Current occupational exposures/hazards: No Meds Allergies Allergy/AdvReac Type Severity Reaction Status Date / Time aspirin Allergy cause anal Verified 01/29/21 17:22 bleeding Exam Height,Weight and Vital Signs: Height 5 ft 6 in Weight 77.111 kg Vital Signs Temp Pulse Resp BP Pulse Ox 09/20/21 08:20 98.1 F 72 18 142/68 H 99 03/04/21 07:41 98.1 F 72 18 142/66 H 99 Airway Mallampati Class: II TM Dist: >3cm Neck ROM: Full Loose/Missing/Broken Teeth: Yes (1 broken back) Heart: RRR Lungs: CTAB Assessment and Plan Assessment Anesthesia Assessment: Anesthesia Plan Discussed Final Anesthetic Review Family History of Problems with Anesthesia: No History of Problems with Anesthesia: No NPO: Yes ASA Class: II Final Preanesthetic Review: No Changes in Pt Med Stat, Meds/Allgs Chart Reviewed, Consent Obtained/Reviewed and Anes Risks/Benef Reviewed Patient Risk: Low Procedure Risk: Low Assessment/Block/Sedation in SS: Assess/Block/Sedation-SS Anesthetic Plan Anesthetic Plan: MAC: Disposition: Standard PACU
[2021-03-04] VITALS (9 sets, daily range): BP systolic 131–154; BP diastolic 66–81; PULSE 57–80; RESP 10–18; TEMP 36.2–36.7; O2SAT 95–100
[2021-03-04] MEDS: Lactated Ringers 1,000 ML 100 ML IVCONT (08:13)
[2021-03-04] MEDS: levoFLOXacin 500 MG TABLET PO (08:13)
--- NOTE | 2021-03-04 09:21 | MHC.SHP ---
Pre-Procedural Eval Section A Date of Service: 03/04/21 Section B Chief Complaint: cystitis Details of Present Illness: Red area within bladder on cystoscopy and left hydronephrosis on imaging Relevant Social History: None Present Medications: see Short Stay Collaborative assessment Medical History: No relevant PMH History of Previous Operations: No relevant previous surgery Allergies: Allergies Allergy/AdvReac Type Severity Reaction Status Date / Time aspirin Allergy cause anal Verified 01/29/21 17:22 bleeding Review of Systems Sugical H&P ROS: Negative: Constitution, Cardiovascular, Respiratory, Neurological, Psychiatric, Hem-Onc, Allergic/Immunologic, Gastrointestinal, Genitourinary, Musculoskeletal, Integumentary, Endocrine and Eyes/Ears/Nose/Throat Exam Surgical H&P Exam: Normal: HEENT, Normal: Heart, Normal: Lungs, Normal: Extremities, Normal: Abdomen, Normal: Skin and Normal: Neurological Plan Diagnosis/Plan: Unchanged (Cystoscopy, bladder biopsy, left retrograde) I have reviewed the history and physical and performed a pertinent physical examination on my patient. No changes have occurred unless specified.
--- NOTE | 2021-03-04 10:06 | W.PM.OPN ---
Operative Note Operative Note Date of Service: 03/04/21 Narrative: PreOperative Diagnosis: Marked bladder cystitis with edema Post Operative Diagnosis: Marked bladder cystitis Procedure: Trans urethral resection of inflamed areas particularly around bladder neck and base of bladder Surgeon: Dr Eber Gonsalez Anesthesia: General Indications for procedure: 55-year-old male seen for microscopic hematuria. Cystoscopy in office showed inflamed bladder. Presents for left retrograde since hydronephrosis seen on ultrasound and fulguration of inflamed bladder areas. Procedure: After informed consent was verified the patient was brought to the operating room and placed in a supine position. Anesthesia was administered per protocol. The patient was placed in a lithotomy position and prepped and draped in a sterile fashion. Safety pause time-out was performed. Antibiotics have been given. Twenty-two Singaporean cystoscope inserted. No abnormality noted of anterior posterior urethra. Floor of the bladder along with bladder neck area was markedly inflamed with edema and changes to the bladder mucosa. The ureteric orifice were unable to be found secondary to inflammation. The cystoscope was removed. A resectoscope was placed. The areas around the bladder neck were resected and fulgurated. Areas around posterior aspect of the trigone in the midline were fulgurated. Care was taken not to treat the inflamed areas of the trigone as ureteric orifice exit was contained within this inflamed area. These areas certainly did not look like transitional cell carcinoma. The inflamed areas appeared to only involve the mucosal layers and to some degree the submucosa. Biopsies were taken and will be sent for pathology. He tolerated procedure well was extubated in operating room transferred in stable condition to the recovery area. Pathology: Bladder biopsies Drains: None
[2021-03-04] MEDS: Phenazopyridine HCL 100 MG TABLET PO (10:21)
[2021-03-04] MEDS: Acetaminophen 325 MG TABLET 650 MG PO (10:21)
[2021-03-04] MEDS: oxyCODONE HCl Immed Release 5 MG TABLET PO (10:29)
[2021-03-04] MEDS: fentaNYL citrate/PF 100 MCG/2 ML VIAL 25 MCG IVPUSH (10:52)
== END 2021-03-04 12:21 | disposition home or self-care (01) ==
PROVIDERS: PCP Internal Medicine; Visit Provider Urology
PROC: 0TBB8ZZ Excision of Bladder, Via Natural or Artificial Opening Endoscopic (ICD-10-PCS; CPT 52500; principal; 2021-03-04 09:10)
DX: N30.81 Other cystitis with hematuria (principal); N13.30 Unspecified hydronephrosis; I10 Essential (primary) hypertension
CPT/HCPCS: 52500; 88307; C1758; J1100; J2250; J2405; J3010; Q9967

== ENCOUNTER 2021-03-15 10:25 | Emergency (ER) | payer OTHER, SELFPAY ==
--- NOTE | ~2021-03-15 | CT_ITS ---
EXAMINATION: CT ABDOMEN AND PELVIS WITH CONTRAST CLINICAL INFORMATION: Evaluate for colitis COMPARISON: Previous CT of the abdomen and pelvis July 2020 TECHNIQUE: Multidetector volumetric images were obtained from the superior aspect of the liver through the pubic symphysis following administration 85 mL of Omnipaque 350 intravenous contrast. Sagittal and coronal reformatted images were obtained on the technologist's workstation. Oral contrast: Yes This CT examination was performed using dose optimization techniques as appropriate, variously including the following: *Automated exposure control *Adjustment of mA and/or kV according to patient size (this includes techniques or standardized protocols for targeted exams where dose is matched to indication/reason for exam; i.e. extremities or head) *Use of iterative reconstruction technique DLP: 770 mGy-cm FINDINGS: LUNG BASES: The visualized lung bases are unremarkable. LIVER, GALLBLADDER, AND BILIARY TREE: The liver is normal in size, shape, and attenuation. No focal hepatic lesion or biliary ductal dilatation is present. The gallbladder has been removed. PANCREAS: Unremarkable. SPLEEN: Unremarkable. ADRENAL GLANDS: Unremarkable. KIDNEYS AND URETERS: There is mild left hydronephrosis and proximal ureteral dilatation. This is similar to July 2020 exam. No stone is seen. There is a 1.5 cm left renal cyst that is stable. No imaging follow-up needed. The right kidney is unremarkable. BLADDER: Not optimally distended. There is new posterior bladder wall thickening GASTROINTESTINAL TRACT: There is mild diverticulosis of the colon. No evidence of diverticulitis or colitis is seen. The small and large bowel are otherwise unremarkable. The appendix is unremarkable. ABDOMINAL WALL: No significant hernia is appreciated. LYMPH NODES: Normal. VASCULAR: Unremarkable. PELVIC VISCERA: Unremarkable. OSSEOUS STRUCTURES: There are degenerative changes of the spine. CT/CT abdomen pelvis w con IMPRESSION: New posterior bladder wall thickening. Infectious and neoplastic processes should be considered. Correlation with urinalysis, culture and cytology recommended. Mild left hydronephrosis and proximal ureteral dilatation similar to previous exam. No stone seen. Diverticulosis of the colon. No evidence of diverticulitis or colitis.
[2021-03-15 10:47] VITALS: BP 124/77; PULSE 94; RESP 16; TEMP 36.7; BMI 28.7
--- NOTE | 2021-03-15 11:14 | ED.NAVMDI ---
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 Mode of arrival: ambulatory Limitations: no limitations History of Present Illness MD elicited complaint: nausea, vomiting, diarrhea and abdominal pain Pertinent past history: other (chronic cystitis on cipro daily) Onset (ago): day(s) (yesterday ) Description of vomiting: food contents Associated nausea: Yes Associated abdominal pain: Yes Location of pain: diffuse Radiation: diffuse Pain consistency: intermittent Severity: moderate Quality: cramping Exacerbating factors: eating Relieving factors: none Context: recent antibiotic use and recent surgery/procedure (2 weeks ago bladder biopsy) Associated symptoms: loss of appetite, malaise, nausea/vomiting and weakness Treatment prior to arrival: immodium and other OTC medicine Related Data Previous Rx's Medication Instructions Recorded hydroxyzine pamoate 50 mg capsule 50 mg PO BEDTIME PRN 90 Days #90 09/03/20 (Vistaril) cap cyclobenzaprine 10 mg tablet 10 mg PO BEDTIME 90 Days #90 tab 09/13/20 trimethoprim 100 mg tablet 100 mg PO BID 30 Days #60 tab 01/22/21 ciprofloxacin HCl 500 mg tablet 500 mg PO BID 30 Days #60 tab 03/04/21 phenazopyridine 100 mg tablet 100 mg PO TID PRN 5 Days #15 tab 03/05/21 (Pyridium) tramadol 50 mg tablet 50 mg PO Q8H PRN #15 tab 03/05/21 hydrocodone 5 mg-acetaminophen 325 1 tab PO Q6H PRN #12 tab 03/15/21 mg tablet ondansetron 4 mg disintegrating 4 mg PO Q8H PRN #20 tab 03/15/21 tablet Allergies Allergy/AdvReac Type Severity Reaction Status Date / Time aspirin Allergy cause anal Verified 01/29/21 17:22 bleeding Review of Systems Review of Systems: Constitutional : No Weight loss, No Fever, No Chills ENT/Mouth : No sore throat, No Rhinorrhea Eyes: No Swelling, No Redness Cardiovascular : No Chest Pain, No SOB, NoEdema Respiratory : No Cough, No Sputum, No Wheezing Gastrointestinal : Positive Nausea, Positive Vomiting, positive Diarrhea, positive abdominal Pain, No Hematochezia, No Melena Genitourinary : No Dysuria, No Urinary Frequency, No Hematuria, No Urgency Musculoskeletal : No joint pain, No Myalgias, No Joint Swelling Skin : No Skin Lesions, No rash Neuro : No Weakness, No Numbness, No Dizziness, No Headache Psych : No Anxiety/Panic, No Depression Heme/Lymph: No Bruising, No Lymphadenopathy Endocrine : No Polyuria, No Polydipsia All other systems reviewed and are negative. Gastrointestinal: Gastrointestinal: Reports nausea PMFSH Past Medical History Attestation statement: The following information was validated with the patient. 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 Thoracic spine pain UTI (urinary tract infection) Surgical History History of appendectomy Family History Family History Mother Hypertension Father Diabetes Dementia Social History Social History Housing: House Alcohol intake: never Patient Tobacco Use Status: Never used Tobacco e-Cigarette/Vaping Use: Never Used Second Hand Smoke Exposure: No Advance Directives: No service: No Current occupational status: employed Current occupational exposures/hazards: No Physical Exam Vital Signs: Vital Signs: Last Vital Signs Temp 98.0 F 03/15/21 10:47 Pulse 94 03/15/21 10:47 Resp 16 03/15/21 10:47 BP 124/77 03/15/21 10:47 Body Mass Index 28.7 Appearance: Alert. Oriented X3. No acute distress. Eyes: Pupils equal, round and reactive to light. ENT: Pharynx mild dry MM Neck: Normal inspection. Neck supple. CVS: Normal heart rate and rhythm. Pulses normal. Respiratory: No respiratory distress. Breath sounds normal. Abdomen: Soft and moderate diffuse ttp no rebound Skin: Skin warm and dry. Normal skin color. Normal skin turgor. Extremities: No lower extremity edema. No calf ttp Neuro: Oriented X 3. No motor deficit. No sensory deficit. Course Course Course Narrative: urine does not match up with the CT scan but he was on cipro - he was not able to take it yesterday or today this could be all related to tramdol will take him off tramadol at this time and have him follow up with Urology no diarrhea here no colitis, can tolerate PO MDM - Nausea/Vomiting/Diarrhea MDM Narrative Medical decision making narrative: 55 yo male with hx of HLD, chronic cystitis on cipro daily comes in with onset of diffuse abdominal pain nausea/vomiting and diarrhea - at this time labs, IVF, IV morphine for pain, CT scan for colitis as well as stool studies ordered, dispo per results and findings. Lab Data Result diagrams: 03/15/21 11:35 03/15/21 11:35 Labs: Lab Results 03/15/21 03/15/21 03/15/21 Range/Units 11:35 11:35 11:35 WBC 11.1 H (4.8-10.8) X10*3/uL RBC 4.93 (4.60-5.80) X10*6/uL Hgb 14.9 (14.0-18.0) g/dl Hct 45.5 (42-52) % MCV 92.3 (80-98) fL MCH 30.2 (27.0-33.0) pg MCHC 32.7 (31.0-36.0) g/dl RDW 12.7 (11.0-16.0) % Plt Count 242 (160-400) X10*3/uL MPV 10.9 (9.4-12.4) fL Immature Gran % (Auto) 0.4 (0.0-0.4) % Neut % (Auto) 90.6 H (45-73) % Lymph % (Auto) 3.9 L (20-40) % [place] % (Auto) 5.0 (2-11) % Eos % (Auto) 0.0 (0-4) % Baso % (Auto) 0.1 (0-2) % Lymph # (Auto) 0.4 L (1.2-4.9) X10*3/uL [place] # (Auto) 0.6 (0.1-1.2) X10*3/uL Eos # (Auto) 0.0 (0.0-0.4) X10*3/uL Baso # (Auto) 0.0 (0.0-0.2) X10*3/uL Abs Immat Gran (auto) 0.04 H (0.00-0.03) X10*3/uL Absolute Neuts (auto) 10.1 H (2.0-8.3) X10*3/uL Absolute Nucleated RBC 0.000 (0.0-0.012) X10*3/uL Nucleated RBC % (auto) 0.0 (0.0-0.2) /100WBC Smear Tech's Comments VERIFIED Sodium 140 (135-145) mmol/L Potassium 4.2 (3.3-5.1) mmol/L Chloride 104 (96-108) mmol/L Carbon Dioxide 25 (22-29) mmol/L Anion Gap 15 (12-20) BUN 14 (9-16) mg/dL Creatinine 1.23 (0.5-1.4) mg/dL Estim Creat Clear Calc 66.1 Estimated GFR > 60 Random Glucose 114 (60-115) mg/dL Lactic Acid (0.5-2.0) mmol/L Calcium 9.7 (8.4-10.2) mg/dL Magnesium 2.0 (1.6-2.6) mg/dL Total Bilirubin 2.0 H (0.0-1.0) mg/dL Direct Bilirubin 0.5 (0.0-0.5) mg/dL AST 32 D (5-37) U/L ALT 41 H (0-40) U/L Alkaline Phosphatase 89 (39-117) U/L Total Protein 8.1 H (6.5-8.0) g/dL Albumin 4.5 (3.5-5.0) g/dL Lipase 23 (8-78) U/L Urine Color Urine Appearance Urine pH (5.0-8.0) Ur Specific [place] (1.005-1.025) Urine Protein (NEG-TRACE) MG/DL Urine Glucose (UA) (NEG) MG/DL Urine Ketones (NEG) MG/DL Urine Blood (NEG) Urine Nitrite (NEG) Ur Leukocyte Esterase (NEG) Urine RBC (0) /HPF Urine WBC (0-4) /HPF Ur Squamous Epith Cells /LPF Urine Bacteria /LPF Urine Mucus /LPF COVID-19 ([facility]) Negative (Negative) COVID-19 Clin Com See Note 03/15/21 03/15/21 Range/Units 11:35 13:26 WBC (4.8-10.8) X10*3/uL RBC (4.60-5.80) X10*6/uL Hgb (14.0-18.0) g/dl Hct (42-52) % MCV (80-98) fL MCH (27.0-33.0) pg MCHC (31.0-36.0) g/dl RDW (11.0-16.0) % Plt Count (160-400) X10*3/uL MPV (9.4-12.4) fL Immature Gran % (Auto) (0.0-0.4) % Neut % (Auto) (45-73) % Lymph % (Auto) (20-40) % [place] % (Auto) (2-11) % Eos % (Auto) (0-4) % Baso % (Auto) (0-2) % Lymph # (Auto) (1.2-4.9) X10*3/uL [place] # (Auto) (0.1-1.2) X10*3/uL Eos # (Auto) (0.0-0.4) X10*3/uL Baso # (Auto) (0.0-0.2) X10*3/uL Abs Immat Gran (auto) (0.00-0.03) X10*3/uL Absolute Neuts (auto) (2.0-8.3) X10*3/uL Absolute Nucleated RBC (0.0-0.012) X10*3/uL Nucleated RBC % (auto) (0.0-0.2) /100WBC Smear Tech's Comments Sodium (135-145) mmol/L Potassium (3.3-5.1) mmol/L Chloride (96-108) mmol/L Carbon Dioxide (22-29) mmol/L Anion Gap (12-20) BUN (9-16) mg/dL Creatinine (0.5-1.4) mg/dL Estim Creat Clear Calc Estimated GFR Random Glucose (60-115) mg/dL Lactic Acid 1.0 (0.5-2.0) mmol/L Calcium (8.4-10.2) mg/dL Magnesium (1.6-2.6) mg/dL Total Bilirubin (0.0-1.0) mg/dL Direct Bilirubin (0.0-0.5) mg/dL AST (5-37) U/L ALT (0-40) U/L Alkaline Phosphatase (39-117) U/L Total Protein (6.5-8.0) g/dL Albumin (3.5-5.0) g/dL Lipase (8-78) U/L Urine Color YELLOW Urine Appearance CLOUDY Urine pH 5.5 (5.0-8.0) Ur Specific [place] 1.015 (1.005-1.025) Urine Protein 1+ H (NEG-TRACE) MG/DL Urine Glucose (UA) NEG (NEG) MG/DL Urine Ketones NEG (NEG) MG/DL Urine Blood 3+ H (NEG) Urine Nitrite NEG (NEG) Ur Leukocyte Esterase NEG (NEG) Urine RBC 76-150 H (0) /HPF Urine WBC 1-4 (0-4) /HPF Ur Squamous Epith Cells 1+ /LPF Urine Bacteria NONE /LPF Urine Mucus TRACE /LPF COVID-19 ([facility]IN) (Negative) COVID-19 Clin Com Discharge Plan Discharge Clinical Impression: Bladder mass Vomiting Qualifiers: Vomiting type: unspecified Vomiting Intractability: non-intractable Nausea presence: with nausea Qualified Code(s): R11.2 - Nausea with vomiting, unspecified Diarrhea Qualifiers: Diarrhea type: unspecified type Qualified Code(s): R19.7 - Diarrhea, unspecified Instructions: Acute Nausea and Vomiting (ED), Acute Diarrhea (ED) Additional Instructions: return to ED for any worsening symptoms or concerns STOP TAKING TRAMADOL Prescriptions: New hydrocodone-acetaminophen 5-325 mg tablet 1 tab PO Q6H PRN (Reason: pain) Qty: 12 RF: 0 ondansetron 4 mg tablet,disintegrating 4 mg PO Q8H PRN (Reason: nausea and vomiting) Qty: 20 RF: 0 No Action cyclobenzaprine 10 mg tablet 10 mg PO BEDTIME 90 Days Qty: 90 RF: 1 tramadol 50 mg tablet 50 mg PO Q8H PRN (Reason: pain) Qty: 15 RF: 0 phenazopyridine [Pyridium] 100 mg tablet 100 mg PO TID PRN (Reason: pain) 5 Days Qty: 15 RF: 0 ciprofloxacin HCl 500 mg tablet 500 mg PO BID 30 Days Qty: 60 RF: 0 hydroxyzine pamoate [Vistaril] 50 mg capsule 50 mg PO BEDTIME PRN (Reason: anxiety) 90 Days Qty: 90 RF: 3 trimethoprim 100 mg tablet 100 mg PO BID 30 Days Qty: 60 RF: 0 Referrals: Eber Gonsalez MD [Physician] - 1 week Stand Alone Forms: Work/School Release Print Language: Setswana
[2021-03-15] MEDS: ondansetron HCL 4 MG/2 ML VIAL IVPUSH (11:39)
[2021-03-15] MEDS: 0.9 % Sodium Chloride 1,000 ML 999 ML IVCONT (11:41)
--- NOTE | 2021-03-15 11:42 | PC.NURSE ---
nad, skin wpd, declined morphine
[2021-03-15 11:43] LABS: Basophils Percent Auto 0.1 % (0-2); Hematocrit 45.5 % (42-52); Hemoglobin 14.9 g/dl (14.0-18.0); Imm Gran Abs Auto 0.04 X10*3/uL (0.00-0.03); Imm Gran Pct Auto 0.4 % (0.0-0.4); Lymphocytes Absolute Auto 0.4 X10*3/uL (1.2-4.9); Lymphocytes Percent Auto 3.9 % (20-40); MANUAL DIFF FLAG SCAN; Mean Corpuscular HGB Conc 32.7 g/dl (31.0-36.0); Mean Corpuscular Hemoglobin 30.2 pg (27.0-33.0); Mean Corpuscular Volume 92.3 fL (80-98); Mean Platelet Volume 10.9 fL (9.4-12.4); Monocytes Absolute Auto 0.6 X10*3/uL (0.1-1.2); Neutrophils Absolute Auto 10.1 X10*3/uL (2.0-8.3); Neutrophils Percent Auto 90.6 % (45-73); Platelet Count 242 X10*3/uL (160-400); Red Blood Count 4.93 X10*6/uL (4.60-5.80); Red Cell Distribution Width 12.7 % (11.0-16.0); SCAN SMEAR FLAG 1; White Blood Count 11.1 X10*3/uL (4.8-10.8)
[2021-03-15 11:59] LABS: Alanine Aminotransferase 41 U/L (0-40); Albumin Level 4.5 g/dL (3.5-5.0); Alkaline Phosphatase 89 U/L (39-117); Anion Gap 15 (12-20); Aspartate Amino Transferase 32 U/L (5-37); Bilirubin Direct 0.5 mg/dL (0.0-0.5); Blood Urea Nitrogen 14 mg/dL (9-16); Calcium 9.7 mg/dL (8.4-10.2); Carbon Dioxide 25 mmol/L (22-29); Chloride 104 mmol/L (96-108); Creatinine Clr Calc Pharmacy 66.1; Estimated Glomerular Filt Rate > 60; Glucose Random 114 mg/dL (60-115); Lipase 23 U/L (8-78); Potassium 4.2 mmol/L (3.3-5.1); Sodium 140 mmol/L (135-145); Total Protein 8.1 g/dL (6.5-8.0)
[2021-03-15 12:07] LABS: COVID-19 Test Negative (Negative); IDNOW Serial# 9DD0AD1C
[2021-03-15 12:09] LABS: SLIDE REVIEW VERIFIED
[2021-03-15] MEDS: iohexoL 350 MG/ML 100 ML INFUS..BTL IV (12:44)
[2021-03-15] MEDS: cefTRIAXone sodium 1 GM in 0.9 % Sodium Chloride 50 ML IV (13:14)
[2021-03-15 13:32] LABS: Appearance Urine CLOUDY; Color Urine YELLOW; Glucose Urine UA NEG (NEG); Leukocyte Esterase Urine NEG (NEG); Nitrite Urine NEG (NEG); PH 5.5 (5.0-8.0); Specific Gravity - Urine 1.015 (1.005-1.025); UACC Culture Trigger NO; Urine Blood 3+ (NEG); Urine Ketones NEG (NEG); Urine Protein 1+ MG/DL (NEG-TRACE)
[2021-03-15] MEDS: Acetaminophen 325 MG TABLET 650 MG PO (13:41)
[2021-03-15 13:47] LABS: Mucus Urine TRACE /LPF; Squamous Epithelial Cell Urine 1+ /LPF
[2021-03-15 15:20] VITALS: BP 144/71; PULSE 76; RESP 18; O2SAT 97
== END 2021-03-15 15:22 | disposition home or self-care (01) ==
PROVIDERS: Emergency Provider Emergency Medicine; PCP Internal Medicine
DX: N32.9 Bladder disorder, unspecified (principal); R11.2 Nausea with vomiting, unspecified; R19.7 Diarrhea, unspecified; R10.9 Unspecified abdominal pain; Z79.899 Other long term (current) drug therapy; Z20.822 Contact with and (suspected) exposure to COVID-19
CPT/HCPCS: 36415; 74177; 80048; 80076; 81001; 83605; 83690; 83735; 85025; 87040; 87635; 96361; 96365; 96375; 99284; J0696; J2405; Q9967

== ENCOUNTER → 2021-03-27 15:41 | Outpatient (BNVA) | payer OTHER, SELFPAY | PROVIDERS: PCP Internal Medicine; Visit Provider Urology | DX: N30.80 Other cystitis without hematuria (principal) | CPT/HCPCS: 99212 ==

== ENCOUNTER 2021-06-25 10:05 | Outpatient (REF) | payer OTHER, SELFPAY ==
[2021-06-25 11:21] LABS: Alanine Aminotransferase 21 U/L (0-40); Alkaline Phosphatase 69 U/L (39-117); Anion Gap 10 (12-20); Aspartate Amino Transferase 18 U/L (5-37); Bilirubin Total 1.2 mg/dL (0.0-1.0); Blood Urea Nitrogen 11 mg/dL (9-16); Calcium 9.6 mg/dL (8.4-10.2); Carbon Dioxide 28 mmol/L (22-29); Chloride 107 mmol/L (96-108); Cholesterol 232 mg/dL; Estimated Glomerular Filt Rate > 60; Glucose Fasting 90 mg/dL (60-99); HDL Cholesterol 45 mg/dL; LDL Cholesterol Calculated 167 mg/dl; Potassium 4.2 mmol/L (3.3-5.1); Sodium 141 mmol/L (135-145); Total Protein 7.3 g/dL (6.5-8.0); Triglycerides 102 mg/dL
== END 2021-06-25 10:06 | disposition home or self-care (01) ==
LOC: HO.LAB 10:05
PROVIDERS: PCP Internal Medicine; Visit Provider Internal Medicine
DX: E78.00 Pure hypercholesterolemia, unspecified (principal); E78.5 Hyperlipidemia, unspecified
CPT/HCPCS: 36415; 80053; 80061

== ENCOUNTER → 2021-10-01 15:48 | Outpatient (BNVA) | payer OTHER, SELFPAY | PROVIDERS: PCP Internal Medicine; Visit Provider Urology | DX: N30.80 Other cystitis without hematuria (principal); N52.01 Erectile dysfunction due to arterial insufficiency | CPT/HCPCS: 99212 ==

== ENCOUNTER 2022-03-14 08:04 | Outpatient (REF) | payer OTHER, SELFPAY ==
[2022-03-14 09:34] LABS: Alanine Aminotransferase 29 U/L (0-40); Albumin Level 4.4 g/dL (3.5-5.0); Alkaline Phosphatase 82 U/L (39-117); Anion Gap 14 (12-20); Aspartate Amino Transferase 23 U/L (5-37); Blood Urea Nitrogen 14 mg/dL (9-16); Calcium 9.7 mg/dL (8.4-10.2); Carbon Dioxide 27 mmol/L (22-29); Chloride 101 mmol/L (96-108); Cholesterol 257 mg/dL; Estimated Glomerular Filt Rate > 60; Glucose Fasting 100 mg/dL (60-99); HDL Cholesterol 47 mg/dL; LDL Cholesterol Calculated 191 mg/dl; Sodium 138 mmol/L (135-145); Total Protein 7.9 g/dL (6.5-8.0); Triglycerides 97 mg/dL
== END 2022-03-14 08:05 | disposition home or self-care (01) ==
LOC: HO.LAB 08:04
PROVIDERS: PCP Internal Medicine; Visit Provider Internal Medicine
DX: Z00.00 Encounter for general adult medical examination without abnormal findings (principal); E78.5 Hyperlipidemia, unspecified
CPT/HCPCS: 36415; 80053; 80061

== ENCOUNTER 2022-09-19 08:42 | Outpatient (REF) | payer OTHER, SELFPAY ==
--- NOTE | ~2022-09-19 | US_ITS ---
EXAMINATION: US RETROPERITONEAL LIMITED (RENAL ONLY) CLINICAL INFORMATION: Calculus of kidney. COMPARISON: CT abdomen and pelvis 03/15/2021. TECHNIQUE: Real-time imaging of the kidneys. FINDINGS: RIGHT KIDNEY: 10.2 x 4.5 x 6.2 cm (SAG x AP x TRV). The kidney is normal in size, contour, and echogenicity. Renal cortical thickness is normal. No calculi or focal parenchymal lesions. No hydronephrosis. LEFT KIDNEY: 11.8 x 5.4 x 5.4 cm (SAG x AP x TRV). The kidney is normal in size, contour, and echogenicity. Renal cortical thickness is normal. No renal calculi or hydronephrosis. There is an anechoic cyst in the midpole measuring 1.4 x 1.3 x 1.[address] abdomen it measured 1.5 cm. US/US renal BI IMPRESSION: 1. Small anechoic cyst midpole left kidney. It is stable to previous CT abdomen exam. 2. There are no echogenic renal calculi or hydronephrosis.
== END 2022-09-19 08:43 | disposition home or self-care (01) ==
LOC: HO.US 08:42
PROVIDERS: PCP Internal Medicine; Visit Provider Urology
DX: N20.0 Calculus of kidney (principal)
CPT/HCPCS: 76775

== ENCOUNTER 2023-01-09 16:02 | Emergency (ER) | payer OTHER, SELFPAY ==
--- NOTE | 2023-01-09 16:11 | ED_ITS ---
HPI - General Adult General Chief complaint: General Medical Stated complaint: headache, fever, stomachache, body pain Time Seen by Provider: 01/09/23 18:01 Source: patient Mode of arrival: ambulatory Limitations: no limitations History of Present Illness HPI narrative: Patient is a 57 year old assigned male at with a history of anxiety and HTN presenting to the emergency department today with feeling generally unwell and having a positive COVID-19 test. Patient states that he is feeling generally unwell and had a positive COVID-19 test at home. Patient denies any dizziness, lightheadedness, abdominal pain, fever, blurry vision, double vision, loss of vision, chest pain, difficulty breathing, shortness of breath, back pain, night sweats, pain with urination, increased urinary frequency, increased urinary urgency, blood in his urine or stool, syncope or a near syncopal episode, recent trauma or falls, bowel incontinence, bladder incontinence, bowel retention, bladder retention, or any other complaints at this time. Onset (ago): day(s) (2) Radiation: non-radiation Severity: mild Severity scale (1-10): 3 Relieving factors: none Exacerbating factors: none Associated symptoms: fever/chills and nausea/vomiting Treatments prior to arrival: none Related Data Home Medications Medication Instructions Recorded Confirmed cyclobenzaprine 10 mg tablet 10 mg PO BEDTIME 06/20/21 03/03/22 Previous Rx's Medication Instructions Recorded hydroxyzine pamoate 50 mg capsule 50 mg PO BEDTIME PRN anxiety 90 06/20/21 (Vistaril) days #90 caps tramadol 50 mg tablet 50 mg PO BID PRN pain 30 days #60 06/20/21 tabs erythromycin 5 mg/gram (0.5 %) eye 1 appl ophthalmic-Left DAILY 5 03/03/22 ointment days #3.5 grams sildenafil 50 mg tablet 50 mg PO .COMPLEX PRN sexual 06/18/22 activity 30 days #30 tabs lisinopril 10 mg tablet 10 mg PO DAILY 90 days #90 tabs 08/15/22 Allergies Allergy/AdvReac Type Severity Reaction Status Date / Time aspirin Allergy cause anal Verified 01/09/23 16:15 bleeding Review of Systems 2 Constitutional: Constitutional: Reports no additional constitutional complaints, Reports body ache(s), Reports chills, Reports fever(s), Reports he adache(s) and Denies night sweats Eyes: Eyes: Reports no additional eye complaints, Denies blurry vision, Denies change in vision, Denies diplopia, Denies eye discharge, Denies loss of vision and Denies eye pain ENT: Denies dizziness and Reports headache(s) Cardiovascular: Cardiovascular: Reports no additional cardiovascular complaints, Denies chest pain, Denies lightheadedness, Denies Loss of Consciousness and Denies dyspnea Respiratory: Respiratory: Reports no additional respiratory complaints and Den ies dyspnea Gastrointestinal: Gastrointestinal: Reports no additional gastrointestinal complaints, Denies abdominal pain, Denies melena, Denies hematochezia, Denies change in bowel habits, Denies change in stool character, Reports nausea and Reports vomiting Genitourinary: Genitourinary: Reports no additional male genitourinary complaints, Denies hematuria, Denies oliguria, Denies difficulty urinating, Denies dysuria, Denies urinary frequency, Denies urinary hesitancy, Denies urinary incontinence and Denies urinary urgency Musculoskeletal: Musculoskeletal: Reports no additional musculoskeletal complaints, Denies numbness and Denies tingling Neurologic: Denies dizziness, Reports headache(s), Denies loss of vision, Denies numbness and Denies tingling Psychiatric: Psychiatric: Reports no additional psychiatric complaints Endocrine: Endocrine: Reports no additional endocrine complaints Hematologic/Lymphatic: Hematologic/Lymphatic: Reports no additional hematologic/lymphatic complaints Allergic/Immunologic: Allergic/Immunologic: Reports no additional allergic/immunologic complaints [facility] Past Medical History Attestation statement: The following information was validated with the patient. Source: old records reviewed and nursing notes reviewed Medical History Anxiety Blurry vision COVID-19 COVID-19 vaccine series completed Hematuria High cholesterol History of COVID-19 HTN (hypertension) Intercostal myalgia Mild recurrent major depression Physical exam Pure hypercholesterolemia Spondylosis of lumbar region without myelopathy or radiculopathy Thoracic spine pain UTI (urinary tract infection) Surgical History History of appendectomy Family History Family History Mother Hypertension CAD (coronary artery disease) Father No problems noted. Social History Social History Housing: House Alcohol intake: never Patient Tobacco Use Status: Never used Tobacco e-Cigarette/Vaping Use: Never Used Second Hand Smoke Exposure: No Advance Directives: No Advance Directives Information Provided: Yes service: No Current occupational status: employed Current occupational exposures/hazards: No Cognitive needs: No Hearing needs: No Vision needs: Yes Physical Exam ED Vital Signs: Vital Signs - 24 hr 01/09/23 16:12 Temperature 99.6 F Pulse Rate 103 H Respiratory Rate 16 Blood Pressure 125/80 Pulse Oximetry 98 Oxygen Delivery Method Room Air BMI result Body Mass Index 28.1 Const General: cooperative, no acute distress, alert and awake Nutritional Appearance: well nourished Orientation/consciousness: patient oriented x3 Limitations: no limitations HENMT Head: Yes normal to inspection and Yes atraumatic Ears: hearing grossly normal bilaterally and external ears normal General nose exam: Normal external nose present, no nasal discharge noted and no epistaxis Face and sinus: Yes normal facial exam, No abrasion and No laceration Mouth: Normal oral and palatal mucosa present, no drooling and no muffled voice Eyes General: appearance normal, both eyes and all related structures Periorbital: periorbital findings normal Eyelids: Yes eyelids normal Conjunctivae: conjunctivae normal Pupils: Equal, round and reactive pupils present EOM: EOMs intact bilaterally Neck Neck: Yes normal visual inspection, Yes full ROM and Yes no lymphadenopathy Chest Chest palpation & inspection: normal inspection of the chest Resp Effort & Inspection: normal respiratory effort and able to speak in complete sentences Auscultation: clear to auscultation bilaterally Cardio Rate: regular rate Rhythm: regular rhythm GI Inspection: Yes normal to inspection Palpation (GI): Soft to palpation, not firm, nontender, no guarding and not rigid Neuro General: patient oriented x3 and moves all extremities Cranial nerves: Yes Equal, round and reactive pupils present Cognition (Neuro): normal cognition Motor exam (neuro): 5/5 motor strength present throughout Sensory Exam: Normal double simultaneous stimulation for sensation Coordination: [id number] test normal Extrem General: Yes normal to inspection, Yes full ROM and Yes capillary refill normal Psych Appearance: grossly normal Mental Status: mental status grossly normal Affect: normal affect Attitude: cooperative Thought process: Normal thought process present Thought content: Normal thought content present Insight: Good insight present (Psych) Course Course Course Narrative: This is a rapid medical exam: Additional HPI, ROS, PE not included below will be deferred to primary provider. Patient is a 57-year-old male presenting to the emergency department with complaint of headache, sweats/chills, nausea, vomiting x 2, diarrhea x 2 since last night. States has similar symptoms. Positive Covid test at home. Plan: swab for flu/Covid, labs, UA Medical Decision Making Medical Decision Making [facility] Narrative: Patient is a 57 year old assigned male at with a history of anxiety and HTN presenting to the emergency department today feeling generally unwell. Patient's physical exam was unremarkable. Patient's blood work was unremarkable. Patient's COVID-19 test was positive. I explained my physical exam findings as well as all test results to the patient. I answered all questions asked by the patient. I stressed the importance of the patient taking his medication as prescribed. I stressed the importance of the patient following up with his primary care provider. I stressed the importance of the patient returning to the emergency department immediately if his symptoms were to worsen or if he were to develop any dizziness, shortness of breath, difficulty breathing, chest pain, blurry vision, loss of vision, nausea, vomiting, abdominal pain, fever, chills, back pain, or any other complaints. Patient verbalized agreement and understandi ng with this treatment plan and discharge. Differential Diagnosis Differential Diagnoses: The differential diagnosis associated with the pr esentation includes COVID-19 Influenza Admission/Observation Consideration of admission/observation: Escalation of care including admission/observation considered Patient would have been admitted to the hospital had his work up had any findings where hospital admission was appropriate and his clinical presentation warranted hospital admission. Lab Data [facility] Lab Attestation statement: I reviewed the patient's lab results. My interpretation of these studies and their corresponding values is that they are grossly normal with the exception of a positive COVID-19 test. 01/09/23 16:49 01/09/23 16:49 Labs: Lab Results 01/09/23 01/09/23 01/09/23 Range/Units 16:49 16:49 16:49 WBC 8.1 (4.8-10.8) X10*3/uL RBC 4.45 L (4.60-5.80) X10*6/uL Hgb 13.6 L (14.0-18.0) g/dl Hct 41.0 L (42.0-52.0) % MCV 92.1 (80.0-98.0) fL MCH 30.6 (27.0-33.0) pg MCHC 33.2 (31.0-36.0) g/dl RDW 12.6 (11.0-16.0) % Plt Count 175 (160-400) X10*3/uL MPV 11.7 (9.4-12.4) fL Immature Gran % (Auto) 0.4 (0.0-0.4) % Neut % (Auto) 80.2 H (45-73) % Lymph % (Auto) 7.9 L (20-40) % Roane % (Auto) 11.0 (2-11) % Eos % (Auto) 0.1 (0-4) % Baso % (Auto) 0.4 (0-2) % Lymph # (Auto) 0.6 L (1.2-4.9) X10*3/uL Roane # (Auto) 0.9 (0.1-1.2) X10*3/uL Eos # (Auto) 0.0 (0.0-0.4) X10*3/uL Baso # (Auto) 0.0 (0.0-0.2) X10*3/uL Abs Immat Gran (auto) 0.03 (0.00-0.03) X10*3/uL Absolute Neuts (auto) 6.5 (2.0-8.3) x10*3/uL Absolute Nucleated RBC 0.000 (0.0-0.012) X10*3/uL Nucleated RBC % (auto) 0.0 (0.0-0.2) /100WBC Sodium 138 (135-145) mmol/L Potassium 3.7 (3.3-5.1) mmol/L Chloride 103 (96-108) mmol/L Carbon Dioxide 21 L (22-29) mmol/L Anion Gap 18 (12-20) BUN 7 L (9-16) mg/dL Creatinine 1.23 (0.5-1.4) mg/dL Estim Creat Clear Calc 63.8 Estimated GFR > 60 Random Glucose 114 (60-115) mg/dL Calcium 9.7 (8.4-10.2) mg/dL Magnesium 1.9 (1.6-2.6) mg/dL Total Bilirubin 1.5 H (0.0-1.0) mg/dL AST 20 (5-37) U/L ALT 20 (0-40) U/L Alkaline Phosphatase 75 (39-117) U/L Total Protein 7.7 (6.5-8.0) g/dL Albumin 4.1 (3.5-5.0) g/dL COVID-19 (GAVIN) (Negative) COVID-19 Clin Com Influenza Type A (CHRIS) Negative (Negative) Influenza Type B (CHRIS) Negative (Negative) Influenza A & B Note See Note 01/09/23 Range/Units 16:49 WBC (4.8-10.8) X10*3/uL RBC (4.60-5.80) X10*6/uL Hgb (14.0-18.0) g/dl Hct (42.0-52.0) % MCV (80.0-98.0) fL MCH (27.0-33.0) pg MCHC (31.0-36.0) g/dl RDW (11.0-16.0) % Plt Count (160-400) X10*3/uL MPV (9.4-12.4) fL Immature Gran % (Auto) (0.0-0.4) % Neut % (Auto) (45-73) % Lymph % (Auto) (20-40) % Roane % (Auto) (2-11) % Eos % (Auto) (0-4) % Baso % (Auto) (0-2) % Lymph # (Auto) (1.2-4.9) X10*3/uL Roane # (Auto) (0.1-1.2) X10*3/uL Eos # (Auto) (0.0-0.4) X10*3/uL Baso # (Auto) (0.0-0.2) X10*3/uL Abs Immat Gran (auto) (0.00-0.03) X10*3/uL Absolute Neuts (auto) (2.0-8.3) x10*3/uL Absolute Nucleated RBC (0.0-0.012) X10*3/uL Nucleated RBC % (auto) (0.0-0.2) /100WBC Sodium (135-145) mmol/L Potassium (3.3-5.1) mmol/L Chloride (96-108) mmol/L Carbon Dioxide (22-29) mmol/L Anion Gap (12-20) BUN (9-16) mg/dL Creatinine (0.5-1.4) mg/dL Estim Creat Clear Calc Estimated GFR Random Glucose (60-115) mg/dL Calcium (8.4-10.2) mg/dL Magnesium (1.6-2.6) mg/dL Total Bilirubin (0.0-1.0) mg/dL AST (5-37) U/L ALT (0-40) U/L Alkaline Phosphatase (39-117) U/L Total Protein (6.5-8.0) g/dL Albumin (3.5-5.0) g/dL COVID-19 (GAVIN) Positive A (Negative) COVID-19 Clin Com See Note Influenza Type A (CHRIS) (Negative) Influenza Type B (CHRIS) (Negative) Influenza A & B Note Chronic Conditions Patient?s care impacted by: Hypertension Discharge Plan Discharge Clinical Impression: COVID-19 Patient Disposition: Home, Self-Care Instructions: COVID-19 (Coronavirus Disease 2019) (ED) Additional Instructions: Follow up with your primary care provider. Return to the emergency department immediately if your symptoms worsen or if you develop any dizziness, shortness of breath, difficulty breathing, chest pain, blurry vision, loss of vision, nausea, vomiting, abdominal pain, fever, chills, back pain, or any other complaints. Mike un seguimiento con arnold proveedor de atenci?n primaria. Regrese al departamento de emergencias de inmediato si robert s?ntomas empeoran o si presenta mareos, falta de aire, dificultad para respirar, dolor de pecho, visi?n borrosa, p?rdida de la visi?n, n?useas, v?mitos, dolor abdominal, fiebre, escalofr?os, do primo de espalda o cualquier otras quejas. Prescriptions: No Action sildenafil 50 mg tablet 50 mg PO .COMPLEX PRN (Reason: sexual activity) 30 Days Qty: 30 5RF Hold Instructions: Doctor's Order Rx Instructions: 50 mg orally PRN- 1 tab daily; administer 60 minutes before intended activity lisinopril 10 mg tablet 10 mg PO DAILY 90 Days Qty: 90 1RF cyclobenzaprine 10 mg tablet 10 mg PO BEDTIME hydroxyzine pamoate [Vistaril] 50 mg capsule 50 mg PO BEDTIME PRN (Reason: anxiety) 90 Days Qty: 90 3RF tramadol 50 mg tablet 50 mg PO BID PRN (Reason: pain) 30 Days Qty: 60 0RF erythromycin 5 mg/gram (0.5 %) ointment 1 appl ophthalmic-Left DAILY 5 Days Qty: 3.5 1RF Referrals: Katja Martinez MD [Primary Care Provider] - Interventions: ED Discharge Assessment Last Done: 01/09/23 18:15 Discharge Date/Time: 01/09/23 18:16 Print Language: Estonian
[2023-01-09 16:12] VITALS: BP 125/80; PULSE 103; RESP 16; TEMP 37.6; O2SAT 98; BMI 28.1
[2023-01-09 16:57] LABS: MANUAL DIFF FLAG NO
[2023-01-09 16:59] LABS: Basophils Percent Auto 0.4 % (0-2); Eosinophils Percent Auto 0.1 % (0-4); Hemoglobin 13.6 g/dl (14.0-18.0); Imm Gran Abs Auto 0.03 X10*3/uL (0.00-0.03); Imm Gran Pct Auto 0.4 % (0.0-0.4); Lymphocytes Absolute Auto 0.6 X10*3/uL (1.2-4.9); Lymphocytes Percent Auto 7.9 % (20-40); Mean Corpuscular HGB Conc 33.2 g/dl (31.0-36.0); Mean Corpuscular Hemoglobin 30.6 pg (27.0-33.0); Mean Corpuscular Volume 92.1 fL (80.0-98.0); Mean Platelet Volume 11.7 fL (9.4-12.4); Monocytes Absolute Auto 0.9 X10*3/uL (0.1-1.2); Neutrophils Absolute Auto 6.5 x10*3/uL (2.0-8.3); Neutrophils Percent Auto 80.2 % (45-73); Platelet Count 175 X10*3/uL (160-400); Red Blood Count 4.45 X10*6/uL (4.60-5.80); Red Cell Distribution Width 12.6 % (11.0-16.0); White Blood Count 8.1 X10*3/uL (4.8-10.8)
[2023-01-09 17:07] LABS: COVID-19 Test Positive (Negative); IDNOW Serial# 08D9AD1C
[2023-01-09 17:15] LABS: Alanine Aminotransferase 20 U/L (0-40); Albumin Level 4.1 g/dL (3.5-5.0); Alkaline Phosphatase 75 U/L (39-117); Anion Gap 18 (12-20); Aspartate Amino Transferase 20 U/L (5-37); Bilirubin Total 1.5 mg/dL (0.0-1.0); Blood Urea Nitrogen 7 mg/dL (9-16); Calcium 9.7 mg/dL (8.4-10.2); Carbon Dioxide 21 mmol/L (22-29); Chloride 103 mmol/L (96-108); Creatinine Clr Calc Pharmacy 63.8; Estimated Glomerular Filt Rate > 60; Glucose Random 114 mg/dL (60-115); Magnesium 1.9 mg/dL (1.6-2.6); Potassium 3.7 mmol/L (3.3-5.1); Sodium 138 mmol/L (135-145); Total Protein 7.7 g/dL (6.5-8.0)
[2023-01-09 17:48] LABS: IDNOW Serial# BCCEAD1C; Influenza A Negative (Negative); Influenza B2 Negative (Negative)
== END 2023-01-09 18:16 | disposition home or self-care (01) ==
PROVIDERS: Registered Nurse Emergency; Emergency Provider Emergency Medicine Emergency Medical Services; PCP Internal Medicine
DX: U07.1 COVID-19 (principal); R51.9 Headache, unspecified; R50.9 Fever, unspecified; Z79.899 Other long term (current) drug therapy
CPT/HCPCS: 80053; 83735; 85025; 87502; 87635; 99282; 99283

== ENCOUNTER 2023-09-30 16:51 | Outpatient (AMB) | payer OTHER, SELFPAY ==
--- NOTE | 2023-09-30 17:02 | MHC.PC.OV ---
Vital Signs 09/30/23 17:03 09/30/23 18:14 Height 5 ft 6 in Weight 176 lb BMI 28.4 BP 156/80 H 150/80 H Blood Pressure Location Lt brachial Lt brachial Position Sitting Sitting Intake Visit Reasons: Physical exam Intake Note: Patient here for a physical exam Pediatric Dermatologist Required: No Accompanied by: Self / Same As Patient Allergies aspirin Allergy (Verified 09/30/23 17:21) cause anal bleeding Medication List - Last Reconciled 09/30/23 by Katja Ward MD lisinopril 10 mg PO DAILY 90 days sildenafil 50 mg orally PRN- 1 tab daily; administer 60 minutes before intended activity 30 days Tobacco use date assessed: 09/30/23 Dental Screening Dental Screen Date: 09/30/23 Did you have a dental visit in the last 12 months?: Yes Did you have a dental problem in the last 6 months where you did not have access to dental care?: No Was dental information given to patient?: Patient has dentist HPI HPI Comments History of Present Illness Details This is a 58-year-old male that comes for his physical exam. Last colonoscopy was about 10 years ago as per patient in [place] showing diverticulosis. Will be refer through open access. Complains of some fresh blood in the stools that happened few weeks ago. Blood pressure elevated and will be recheck in 3 weeks by nurse navigator. No chest pain or shortness of breath. [facility] Medical History (Updated 09/30/23 @ 18:21 by Katja Ward MD) Physical exam Pure hypercholesterolemia Mild recurrent major depression COVID-19 vaccine series completed History of COVID-19 Spondylosis of lumbar region without myelopathy or radiculopathy Thoracic spine pain Blurry vision Hematuria Anxiety COVID-19 HTN (hypertension) High cholesterol Intercostal myalgia UTI (urinary tract infection) Surgical History History of appendectomy Family History (Updated 09/30/23 @ 17:26 by Katja Ward MD) Mother Hypertension CAD (coronary artery disease) Father No problems noted. Social History Housing: House Alcohol intake: never Patient Tobacco Use Status: Never used Tobacco e-Cigarette/Vaping Use: Never Used Second Hand Smoke Exposure: No service: No Current occupational status: employed Current occupational exposures/hazards: No Cognitive needs: No Hearing needs: No Vision needs: Yes Questionnaire PHQ-9 Over the last 2 weeks, how often have you been bothered by any of the following problems? 1. Little interest or pleasure in doing things: not at all 2. Feeling down, depressed, or hopeless: not at all 3. Trouble falling or staying asleep, or sleeping too much: not at all 4. Feeling tired or having little energy: not at all 5. Poor appetite or overeating: not at all 6. Feeling bad about yourself - or that you are a failure or have let yourself or your family down: not at all 7. Trouble concentrating on things, such as reading the newspaper or watching television: not at all 8. Moving or speaking so slowly that other people could have noticed. Or the opposite - being so fidgety or restless that you have been moving around a lot more than usual: not at all 9. Thoughts that you would be better off or of hurting yourself in some way: not at all Total score: 0 Depression Screening Interpretation: Negative Depression Screening Done: Yes 29254 - PHQ-9 Billing: Yes Source: Developed by Drs. Kristofer Aguilar, Diana Dutton, Calvin Armstrong and colleagues, with an educational isabel from [employer]. Thrive Questionnaire Date Thrive assessed: 09/30/23 I am a: Patient What is your living situation today?: I have a steady place to live Within the past 12 months, did the food you bought not last and you didn't have the money to get more?: Never true Within the past 12 months, did you worry whether your food would run out before you got money to buy more?: Never true Do you have trouble paying for medicines?: No Do you have trouble getting transportation to medical appointments?: No Do you have trouble paying your heating and electricity bill?: No Do you have trouble taking care of your child, family member or friend?: No Do you have trouble with day-to-day activities such as bathing, preparing meals, shopping, managing finances, etc.?: No Are you currently unemployed and looking for a job?: No Are you interested in more education?: No Please select the resources that you would like help with: None Currently or been in a relationship where the following occur: no concerns reported THRIVE Score: 0 AUDIT C Alcohol Use Questionnaire (AUDIT-C) 1. How often do you have a drink containing alcohol?: Never Total Score: 0 ALEENA-7 AMB Questionnaire ALEENA-7 Date ALEENA - 7 assessed: 09/30/23 Feeling nervous, anxious, or on edge: 1 = Several days Not being able to stop or control worryin = Not at all Worrying too much about different things: 0 = Not at all Trouble relaxin = Not at all Being so restless that it is hard to sit still: 0 = Not at all Becoming easily annoyed or irritable: 0 = Not at all Feeling afraid as if something awful might happen: 0 = Not at all Total ALEENA-7 score (0-4 normal; 5-9 mild; 10-14 moderate; 15-21 severe): 1 Source: Developed by Drs. Kristofer Aguilar, Diana Dutton, Calvin Armstrong and colleagues, with an educational isabel from [employer]. ALEENA-7 Assessment Billing ALEENA-7 Assessment Tool: ALEENA-7 Assessment 43513 Review of Systems Const All systems reviewed & are unremarkable except as noted in HPI and below Eyes Reports no additional complaints, Denies change in vision and Denies other visual disturbances Card Denies chest pain at rest, Denies chest pain with activity, Denies edema, Denies irregular heart rhythm, Denies claudication, Denies dyspnea, Denies dyspnea on exertion, Denies orthopnea, Denies paroxysmal nocturnal dyspnea and Denies slow heart rate Resp Denies cough, Denies dyspnea and Denies dyspnea on exertion Physical exam (Primary Care) Vital Signs: Last Vital Signs BP 156/80 H 09/30/23 17:03 BMI result Body Mass Index 28.4 Tobacco/Smoking Status: Tobacco use Status Tobacco use date assessed 09/30/23 09/30/23 17:10 Patient Tobacco Use Status Never used Tobacco 09/30/23 17:03 e-Cigarette/Vaping Use Never Used 09/30/23 17:03 PHQ-9: PHQ-9 Score PHQ-9: Total score 0 09/30/23 17:26 Depression Screening Interpretation: Negative Thrive Assessment: Date of Thrive Assessment Date Thrive assessed 09/30/23 09/30/23 17:10 Currently or been in a relationship where the following occur: no concerns reported Const Orientation/consciousness: patient oriented x3 [facility] Head: Yes normal to inspection, Yes normocephalic and Yes atraumatic Ears: external ears normal Eyes General: appearance normal, both eyes and all related structures Eyelids: Yes eyelids normal Conjunctivae: conjunctivae normal Neck Neck: Yes normal visual inspection and Yes supple Resp Effort & Inspection: normal respiratory effort Auscultation: clear to auscultation bilaterally Cardio Jugular venous distension: no JVD Rate: regular rate Rhythm: regular rhythm Heart sounds: S1 normal heart sound present and S2 normal heart sound present GI Inspection: Yes normal to inspection Palpation (GI): Soft to palpation and nontender Auscultation: normal bowel sounds Skin General skin exam: no rashes or lesions noted Neuro General: patient oriented x3 and no focal motor deficits Extrem General: Yes full ROM Psych Appearance: grossly normal Assessment and Plan Assessment & Plan (1) Physical exam: Code(s): Z00.00 - Encounter for general adult medical examination without abnormal findings Plan: Repeat in a year. Orders: Orders Complete Blood Count Auto Diff Today D64.9 - Anemia, unspecified IRON PROFILE Today D64.9 - Anemia, unspecified Lipid Panel Today E78.5 - Hyperlipidemia, unspecified, I10 - Essential (primary) hypertension Comprehensive Dayhoit. Panel Fast Today I10 - Essential (primary) hypertension Referrals Open Access Screening Colonoscopy Referral Z12.11 - Encounter for screening for malignant neoplasm of colon Coding Level of Care Code Est Pt Prev Care 40-64y(82700) Diagnoses Physical exam Z00.00 Additional Codes ALEENA-7 Assessment Billing - ALEENA-7 Assessment Tool: ALEENA-7 Assessment 24672 ([id number]) Time Spent (min) 32
[2023-09-30 17:03] VITALS: BP 156/80; BMI 28.4
[2023-09-30 18:14] VITALS: BP 150/80
== END 2023-09-30 17:34 | disposition home or self-care (01) ==
PROVIDERS: PCP Internal Medicine; Visit Provider Internal Medicine
DX: Z00.00 Encounter for general adult medical examination without abnormal findings (principal)
CPT/HCPCS: 99396

== ENCOUNTER 2023-10-14 09:47 | Outpatient (REF) | payer OTHER, SELFPAY ==
[2023-10-14 10:54] LABS: Hematocrit 40.3 % (42.0-52.0); Hemoglobin 13.6 g/dl (14.0-18.0); Mean Corpuscular HGB Conc 33.7 g/dl (31.0-36.0); Mean Corpuscular Hemoglobin 31.2 pg (27.0-33.0); Mean Corpuscular Volume 92.4 fL (80.0-98.0); Platelet Count 227 X10*3/uL (160-400); Red Blood Count 4.36 X10*6/uL (4.60-5.80); Red Cell Distribution Width 12.4 % (11.0-16.0); White Blood Count 5.8 X10*3/uL (4.8-10.8)
[2023-10-14 11:44] LABS: Calcium 9.2 mg/dL (8.4-10.2); Chloride 106 mmol/L (96-108); Potassium 4.1 mmol/L (3.3-5.1); Sodium 141 mmol/L (135-145)
== END 2023-10-14 09:48 | disposition home or self-care (01) ==
LOC: HO.LAB 09:47
PROVIDERS: Visit Provider Internal Medicine
DX: D64.9 Anemia, unspecified (principal); E78.5 Hyperlipidemia, unspecified; I10 Essential (primary) hypertension
CPT/HCPCS: 36415; 80053; 80061; 83540; 85025

== ENCOUNTER 2024-05-10 10:04 | Outpatient (REF) | payer MEDICAID, SELFPAY ==
[2024-05-10 14:36] LABS: MANUAL DIFF FLAG NO
[2024-05-10 14:58] LABS: Basophils Percent Auto 0.5 % (0-2); Eosinophils Absolute Auto 0.2 X10*3/uL (0.0-0.4); Eosinophils Percent Auto 2.6 % (0-4); Hematocrit 43.1 % (42.0-52.0); Hemoglobin 14.4 g/dl (14.0-18.0); Imm Gran Abs Auto 0.02 X10*3/uL (0.00-0.03); Imm Gran Pct Auto 0.3 % (0.0-0.4); Lymphocytes Absolute Auto 1.7 X10*3/uL (1.2-4.9); Mean Corpuscular HGB Conc 33.4 g/dl (31.0-36.0); Mean Corpuscular Hemoglobin 30.9 pg (27.0-33.0); Mean Corpuscular Volume 92.5 fL (80.0-98.0); Mean Platelet Volume 11.9 fL (9.4-12.4); Monocytes Absolute Auto 0.5 X10*3/uL (0.1-1.2); Monocytes Percent Auto 8.3 % (2-11); Neutrophils Absolute Auto 3.4 x10*3/uL (2.0-8.3); Neutrophils Percent Auto 59.3 % (45-73); Platelet Count 198 X10*3/uL (160-400); Red Blood Count 4.66 X10*6/uL (4.60-5.80); Red Cell Distribution Width 12.7 % (11.0-16.0); White Blood Count 5.8 X10*3/uL (4.8-10.8)
[2024-05-10 15:19] LABS: Alanine Aminotransferase 31 U/L (0-40); Albumin Level 4.1 g/dL (3.5-5.0); Alkaline Phosphatase 75 U/L (39-117); Anion Gap 11 (12-20); Aspartate Amino Transferase 30 U/L (5-37); Bilirubin Total 1.1 mg/dL (0.0-1.0); Blood Urea Nitrogen 11 mg/dL (9-16); Calcium 9.3 mg/dL (8.4-10.2); Carbon Dioxide 27 mmol/L (22-29); Chloride 104 mmol/L (96-108); Cholesterol 214 mg/dL (<200); Estimated Glomerular Filt Rate > 60; Glucose Random 92 mg/dL (60-115); HDL Cholesterol 47 mg/dL (>40); LDL Cholesterol Calculated 147 mg/dL (<100); Sodium 138 mmol/L (135-145); Total Protein 7.4 g/dL (6.5-8.0); Triglycerides 104 mg/dL (<150)
[2024-05-10 15:27] LABS: PSA,Total (Free>4and<10) 0.68 ng/mL (0.00-4.00)
[2024-05-10 15:33] LABS: TSH reflex Free T4 1.62 uIU/mL (0.32-4.0)
[2024-05-11 08:28] LABS: HIV AB/AG Nonreactive (Nonreactive); HIV Num 1 0.08 S/CO (0.00-0.99); ~HepC Num1 0.26 S/CO (0.00-0.79); ~Hepatitis C Antibody Nonreactive (Nonreactive)
== END 2024-05-10 10:05 | disposition home or self-care (01) ==
LOC: HO.CHCLDS 10:04
PROVIDERS: Visit Provider Family Medicine
DX: I10 Essential (primary) hypertension (principal); Z12.5 Encounter for screening for malignant neoplasm of prostate
CPT/HCPCS: 36415; 80053; 80061; 84153; 84443; 85025; 86803; 87389

== ENCOUNTER 2024-05-24 05:48 | Day surgery (SDC) | payer MEDICAID, SELFPAY ==
[2024-05-20 13:18] VITALS: BMI 28.4
--- NOTE | 2024-05-23 08:46 | HO.ANESPROP2 ---
Documented by User: Shanthi Childress NP 05/23/24 08:46 HPI - Anesthesia Eval Consult details Narrative: 59yo M for Colonoscopy PMFSH Active Problems Active Problems: All Active Problems Physical exam (Acute) Essential hypertension (Acute) Pure hypercholesterolemia (Acute) Erectile dysfunction due to arterial insufficiency (Acute) Nephrolithiasis (Acute) Cystitis cystica (Acute) COVID-19 (Acute) Microscopic hematuria (Acute) Spondylosis of lumbar region without myelopathy or radiculopathy (Acute) Thoracic spine pain (Acute) Blurry vision (Acute) Hematuria (Acute) Anxiety (Acute) High cholesterol (Acute) Intercostal myalgia (Acute) UTI (urinary tract infection) (Acute) Past Medical History Medical History (Updated 09/30/23 @ 18:21 by Katja Ward MD) Physical exam Pure hypercholesterolemia Mild recurrent major depression COVID-19 vaccine series completed History of COVID-19 Spondylosis of lumbar region without myelopathy or radiculopathy Thoracic spine pain Blurry vision Hematuria Anxiety COVID-19 HTN (hypertension) High cholesterol Intercostal myalgia UTI (urinary tract infection) Family History Family History (Updated 09/30/23 @ 17:26 by Katja Ward MD) Mother Hypertension CAD (coronary artery disease) Father No problems noted. Family history of problems with anesthesia: No Surgical History Surgical History (Updated 05/24/24 @ 06:34 by Savannah Mcdowell RN) Hx of colonoscopy History of appendectomy History of Problems with Anesthesia: No Social History Social History Housing: House Alcohol intake: never Patient Tobacco Use Status: Never used Tobacco e-Cigarette/Vaping Use: Never Used Second Hand Smoke Exposure: No Have you been hit, kicked, punched, or otherwise hurt by someone within the past year? If so, by whom?: No Are you DNR?: No Advance Directives: No Advance Directives Information Provided: Yes service: No Current occupational status: employed Current occupational exposures/hazards: No Cognitive needs: No Hearing needs: No Vision needs: Yes Meds Allergies Allergy/AdvReac Type Severity Reaction Status Date / Time aspirin Allergy cause anal Verified 09/30/23 17:21 bleeding Exam Height,Weight and Vital Signs: Height 5 ft 6 in Weight 79.832 kg Assessment and Plan Assessment Anesthesia Assessment: Chart Reviewed Final Anesthetic Review Family History of Problems with Anesthesia: No History of Problems with Anesthesia: No Documented by User: Yoni Willams MD 05/24/24 07:23 [facility] Past Medical History Medical History (Updated 09/30/23 @ 18:21 by Katja Ward MD) Physical exam Pure hypercholesterolemia Mild recurrent major depression COVID-19 vaccine series completed History of COVID-19 Spondylosis of lumbar region without myelopathy or radiculopathy Thoracic spine pain Blurry vision Hematuria Anxiety COVID-19 HTN (hypertension) High cholesterol Intercostal myalgia UTI (urinary tract infection) Family History Family History (Updated 09/30/23 @ 17:26 by Katja Ward MD) Mother Hypertension CAD (coronary artery disease) Father No problems noted. Surgical History Surgical History (Updated 05/24/24 @ 06:34 by Savannah Mcdowell RN) Hx of colonoscopy History of appendectomy Social History Social History Housing: House Alcohol intake: never Patient Tobacco Use Status: Never used Tobacco e-Cigarette/Vaping Use: Never Used Second Hand Smoke Exposure: No Have you been hit, kicked, punched, or otherwise hurt by someone within the past year? If so, by whom?: No Are you DNR?: No Advance Directives: No Advance Directives Information Provided: Yes service: No Current occupational status: employed Current occupational exposures/hazards: No Cognitive needs: No Hearing needs: No Vision needs: Yes Meds Allergies Allergy/AdvReac Type Severity Reaction Status Date / Time aspirin Allergy cause anal Verified 09/30/23 17:21 bleeding Exam Airway Mallampati Class: II TM Dist: >3cm Neck ROM: Full Assessment and Plan Assessment Anesthesia Assessment: Anesthesia Plan Discussed Final Anesthetic Review NPO: Yes ASA Class: II Final Preanesthetic Review: No Changes in Pt Med Stat, Meds/Allgs Chart Reviewed, Consent Obtained/Reviewed, Anes Risks/Benef Reviewed and DNR Form (If Appl.) Patient Risk: Low Procedure Risk: Low Anesthetic Plan Anesthetic Plan: TIVA Disposition: Standard PACU
[2024-05-24] VITALS (8 sets, daily range): BP systolic 73–138; BP diastolic 33–77; PULSE 61–82; RESP 16–19; TEMP 36.1–36.4; O2SAT 98–100; BMI 28.5
--- NOTE | 2024-05-24 06:41 | MHC.SHP ---
Pre-Procedural Eval Section A - 24 Hr Update-Section A only Date of Service: 05/24/24 Section B - Complete if H&P > 30 days Chief Complaint: Encounter for screening for malignant neoplasm of Relevant Family History (Specify if Yes): No Relevant Social History: None Present Medications: see Short Stay Collaborative assessment Medical History: Significant History (Pure hypercholesterolemia Mild recurrent major depression COVID-19 vaccine series completed History of COVID-19 Spondylosis of lumbar region without myelopathy or radiculopathy Thoracic spine pain Blurry vision Hematuria Anxiety COVID-19 HTN (hypertension) High cholesterol Intercostal myalgia UTI (u) History of Previous Operations: Relevant previous surgery/procedure and date(s) (appendectomy) Allergies: Allergies Allergy/AdvReac Type Severity Reaction Status Date / Time aspirin Allergy cause anal Verified 09/30/23 17:21 bleeding Review of Systems Sugical H&P ROS: Negative: Constitution, Cardiovascular, Respiratory, Neurological, Psychiatric, Hem-Onc, Allergic/Immunologic, Gastrointestinal, Genitourinary, Musculoskeletal, Integumentary, Endocrine and Eyes/Ears/Nose/Throat Exam Surgical H&P Exam: Normal: HEENT, Normal: Heart, Normal: Lungs, Normal: Extremities, Normal: Abdomen, Normal: Skin and Normal: Neurological Plan Diagnosis/Plan: Unchanged I have reviewed the history and physical and performed a pertinent physical examination on my patient. No changes have occurred unless specified. Time Spent With Patient Time: Total time managing care of this patient today ____ minutes.
[2024-05-24] MEDS: Lactated Ringers 1,000 ML 100 ML IVCONT (06:57)
--- NOTE | 2024-05-24 08:06 | P.OPN-COLO_ITS ---
Colonoscopy Operative Note Operative Note Date of Service: 05/24/24 Narrative: Operative Information Procedure Description: Colonoscopy Indication: screening Anesthesia: MAC COLONOSCOPY Instrument: Olympus variable stiffness pediatric scope 190L Colonoscopy Monitoring: Vital signs and clinical assessment, continuous EKG monitoring, Pulse oximetry, Carbon Dioxide monitoring and blood pressure monitoring were done throughout the procedure. Colon withdrawal time was 10 minutes. Procedure: The patient was placed in the left lateral decubitis position and pre-procedure medications were administered. After a digital rectal examination of the ano-rectum, the video colonoscope was inserted into the rectum and advanced through the colon to the cecum/TI. The colonoscope was slowly withdrawn in a retrograde panoramic fashion and the colon mucosa was carefully examined including a retroflexed view of the rectum. Findings and interventions are described below. Procedure Difficulty: easy Findings: Terminal Ileum-normal Cecum:normal Right sided retroflexion- normal Ascending Colon: mild diverticulosis Transverse Colon -normal Descending Colon:normal Sigmoid Colon: moderate diverticulosis, x 2 sessile polyps 7-8 mm removed with cold snare Rectum: Retroflexion with medium sized internal hemorrhoids seen, grade I Anorectum - normal Intervention: cold snare Colon preparation: Bradford Bowel Preparation Scale Right colon; 2 Transverse colon: 2 Left colon; 2 (0 = Unprepared colon segment with mucosa not seen due to solid stool that cannot be cleared. 1 = Portion of mucosa of the colon segment seen, but other areas of the colon segment not well seen due to staining, residual stool and/or opaque liquid. 2 = Minor amount of residual staining, small fragments of stool and/or opaque liquid, but mucosa of colon segment seen well. 3 = Entire mucosa of colon segment seen well with no residual staining, small fragments of stool or opaque liquid) Impression and Post Procedure Diagnosis: diverticulosis colon polyps internal hemorrhoids Plan: High fiber diet leaflet Avoid straining at stool, epsom salts and sitz bath, anusol supps or cream Repeat Colonoscopy in 5-6 years if adenomatous polyps, 10 yrs if hyperplastic or earlier if clinically indicated Above findings were reviewed with the patient and relevant handouts were provided if indicated.
== END 2024-05-24 09:24 | disposition home or self-care (01) ==
PROVIDERS: PCP Family Medicine; Visit Provider Internal Medicine Gastroenterology
PROC: 0DJD8ZZ Inspection of Lower Intestinal Tract, Via Natural or Artificial Opening Endoscopic (ICD-10-PCS; CPT 45378; principal; 2024-05-24 07:30)
DX: Z12.11 Encounter for screening for malignant neoplasm of colon (principal); K63.5 Polyp of colon; K57.30 Diverticulosis of large intestine without perforation or abscess without bleeding; K64.0 First degree hemorrhoids; I10 Essential (primary) hypertension; E78.00 Pure hypercholesterolemia, unspecified; R07.82 Intercostal pain; M47.816 Spondylosis without myelopathy or radiculopathy, lumbar region; F33.0 Major depressive disorder, recurrent, mild; Z79.899 Other long term (current) drug therapy; Z88.6 Allergy status to analgesic agent
CPT/HCPCS: 45385; 88305

== ENCOUNTER → 2024-05-24 05:48 | Outpatient (BNV) | payer MEDICAID, SELFPAY | PROVIDERS: PCP Family Medicine; Visit Provider Internal Medicine Gastroenterology | DX: Z12.11 Encounter for screening for malignant neoplasm of colon (principal); K63.5 Polyp of colon; K57.90 Diverticulosis of intestine, part unspecified, without perforation or abscess without bleeding; K64.0 First degree hemorrhoids | CPT/HCPCS: 45385 ==

== ENCOUNTER 2024-10-17 09:22 | Outpatient (REF) | payer MEDICAID, SELFPAY ==
--- OUTSIDE RECORDS SUMMARY | 2024-10-17 10:12 | XMS_ITS | Clinical Summary ---
Author Organization [facility] [facility] [employer] Address [address] [place] [address] Care Team Providers Care Finance Specialist Name Role Phone Lois Mcpherson MD Primary Care Provider [phone] Allergies Active Allergy Reactions Criticality Noted Date Comments Aspirin Bleeding 05/09/2024 Medications Viagra 50 MG tablet TAKE 1 TABLET 1 HOUR BEFORE SEXUAL RELATIONS ONCE DAILY NEEDED. 10 tablet 5 Active rosuvastatin (Crestor) 40 MG tablet Take 1 tablet (40 mg) by mouth Once per day. 90 tablet 1 5 Active lisinopril 40 MG tablet Take 1 tablet (40 mg) by mouth Once per day. 90 tablet 1 5 Active Active Problems Problem Noted Date Diagnosed Date Bladder mass 06/13/2024 Cystitis cystica 06/13/2024 Overview (06/13/2024): 03/05 Biopsy after Covid COVID-19 06/13/2024 Erectile dysfunction due to arterial insufficien cy 06/13/2024 Gastritis 06/13/2024 Hematuria 06/13/2024 Intercostal myalgia 06/13/2024 Mild recurrent major depression 06/13/2024 Nephrolithiasis 06/13/2024 Spondylosis of lumbar region without myelopathy or radiculopathy 06/13/2024 Thoracic spine pain 06/13/2024 Hyperlipidemia 05/10/2024 Assessment & Plan (06/13/2024 12:02 PM EST): Ordering lab work for further evaluation. Discussed medications and refills as needed. Relevant Medications Rosuvastatin (Crestor) 40 MG tablet Primary hypertension 05/09/2024 Assessment & Plan (06/13/2024 12:02 PM EST): BP recheck 142/84, advised to take medication at night for better results. Continue to monitor BP at home. Follow up in 4 months. Discussed medications and refills as needed. Relevant Medications Lisinopril 40 MG tablet Assessment & Plan (05/09/2024 9:45 AM EST): BP is elevated, follow up in 2 weeks with nurse for BP recheck with at home readings. Discussed medication refills as needed. Ordering lab work for further evaluation. Follow up in 6 weeks with labs. Relevant Medications Lisinopril 20 MG tablet Anxiety 05/09/2024 History of COVID-19 05/09/2024 Other male erectile dysfunction 05/09/2024 Assessment & Plan (05/09/2024 9:31 AM EST): Discussed medication refills as needed. Relevant Medications Sildenafil (Viagra) 50 MG tablet Encounters Date Type Department Care Team Description 08/29/2024 Telephone [facility] [address] [place] [address] Lois Mcpherson MD 08/26/2024 Population Health Risk Score [facility] ([facility] Department [address] [place] [address] [phone] Provider, Population Health Generic 08/10/2024 Refill [facility] [address] [place] [address] Lois Mcpherson MD from Last 3 Months Immunizations Name Administration Dates Next Due Tdap 05/09/2024 Family History Medical History Relation Name Comments Heart disease Mother Relation Name Status Comments Mother Social History Tobacco Use Types Packs/Day Years Used Date Smoking Tobacco: Never Passive Smoke Exposure: Never Smokeless Tobacco: Never Tobacco Cessation:Counseling Given: Not Answered Alcohol Use Standard Drinks/Week Comments Never 0 (1 standard drink = 0.6 oz pur e alcohol) Depression Answer Date Recorded Patient Health Questionnaire-9 Score 0 05/09/2024 Patient Health Questionnaire-9 Score 0 05/09/2024 Last PHQ-9: Questionnaire Data Not on file 1 07/09/2023 Housing Stability Answer Date Recorded What is your housing situation today? I have patricia dominguez 04/28/[address] you li ve. Do you have problems with any of the following? None of the above 04/28/2024 Food Insecurity Answer Date Recorded Within the past 12 months, y ou worried that your food would run out before you got money to buy more: Never True 04/28/2024 Within the past 12 months,th e food you bought just didn't last and you didn't have enough money to get more: Never True Transportation Answer Date Recorded In the past 12 months, has l ack of transportation kept you from medical appts, meetings, work or from getting things needed for daily living? No 04/28/2024 Utilities Answer Date Recorded In the past 12 months, has t he electric, gas, oil or water company threatened to shut off services in your home? No 04/28/2024 Depression Answer Date Recorded Patient Health Questionnaire-2 Score 0 05/09/2024 Internet Access Answer Date Recorded Internet Access Q1 Yes 04/28/2024 Internet Access Q2 Not on file 04/28/2024 Sex and Gender Information Value Date Recorded Sex Assigned at Male 02/22/2024 10:07 AM EDT Legal Sex Male 10:04 AM EDT Gender Identity Male 03/21/2024 11:23 AM EDT Sexual Orientation Straight 03/21/2024 11 :23 AM EDT Last Filed Vital Signs Vital Sign Reading Time Taken Comments Blood Pressure 142/84 06/13/2024 11:44 AM EST Pulse 76 06/13/2024 11:27 AM EST Temperature 37 ??C (98.6 ??F) 06/13/2024 11:27 AM EST Respiratory Rate 20 06/13/2024 11:27 AM EST Oxygen Saturation 98% 05/09/2024 8:58 AM EST Inhaled Oxygen Concentration - - Weight 80.7 kg (178 lb) 06/13/2024 11:27 AM EST Height 167.6 cm (5' 6 ) 06/13/2024 11:27 AM EST Body Mass Index 28.73 06/13/2024 11:27 AM EST Plan of Treatment Upcoming Encounters Date Type Department Care Team ([facility] Contact Info) Description 11/17/2024 2:30 PM EDT Office Visit [facility] [address] [place] [address] Lois Mcpherson MD [address] [place] [address] Health Maintenance Due Date Last Done Comments CT Colonography 1963 FIT DNA/Cologuard 1963 FIT 1963 FOBT 1963 Sigmoidoscopy 1963 Pneumococcal Vaccine: 50+ Years (1 of 1 - PCV) 2013 Influenza Vaccine (#1) 2024 Postp oned from 02/14/2024 (Patient Refused) SDOH Screening 04/28/2025 04/28/2024 Alcohol/Substance Use Screening 05/09/2025 05/09/2024 COVID-19 Vaccine (4 - 2023-2 5 season) 2025 05/30/2021, 10/08/2020, 09/10/2020 Postponed from 02/14/2024 (Patient Refused) Depression Screening 05/09/2025 05/09/2024, 05/09/2024 Zoster Vaccines (1 of 2) 05/09/2025 Pos tponed from 2013 (Patient Refused) Tobacco Screening 06/13/2025 06/13/2024 Lipid Panel 05/10/2029 05/10/2024 DTaP/Tdap/Td Vaccines (2 - T d or Tdap) 05/09/2034 05/09/2024 Colonoscopy 05/24/2034 Colorectal Cancer Screening 05/24/2034 RSV Patients and Patients Aged 60 years or older (1 - 1-dose 75+ series) 2038 HIV Screening Completed 05/10/2024 Hepatitis C Screening Completed 05/10/2024 HIB Vaccines Aged Out No longer eligi ble based on patient's age to complete this topic HPV Vaccines Aged Out No longer eligi ble based on patient's age to complete this topic Hepatitis A Vaccines Aged Out No long er eligible based on patient's age to complete this topic Hepatitis B Vaccines Aged Out No long er eligible based on patient's age to complete this topic IPV Vaccines Aged Out No longer eligi ble based on patient's age to complete this topic Meningococcal Vaccine Aged Out No franklin jud eligible based on patient's age to complete this topic RSV under 20 months Aged Out No longe r eligible based on patient's age to complete this topic Rotavirus Vaccines Aged Out No longer eligible based on patient's age to complete this topic Procedures Procedure Name Priority Date/Time Associated Diagnosis Comments HEPATITIS C AB W/REFL TO HCV RNA, QN, PCR Routine 05/10/2024 10:05 AM EST Encounter for health-related screening HIV 1/2 ANTIGEN/ANTIBODY, FOURTH GENERATION W/RFL Routine 05/10/2024 10:05 AM EST Encounter for health-related screening LIPID PANEL, STANDARD Routine 05/10/2024 10:05 AM EST Primary hypertension from Last 3 Months or Most Recently Relevant to Health Maintenance Results * Hepatitis C Antibody with Reflex to HCV, RNA, Quantitative, Real-Time PCR (05/10/2024 10:05 AM EST) Hepatitis C Antibody Nonreactive Nonreactive [facility] Comment:Antibodies to HCV no t detected; does not exclude early acuteHCV infection. Blood Venous blood specimen / Unknown 05/10/2024 10:05 AM EST 05/10/2024 2:29 PM EST us Lois Mcpherson MD LAB BLOOD ORDERABLES Final Re sult [facility] [address] [place] [phone] * HIV-1/2 Antigen and Antibodies, Fourth Generation, with Reflexes (05/10/2024 10:05 AM EST) HIV AB/AG Nonreactive Nonreactive [facility] Comment:HIV-1 p24 Ag and/or HIV-1/HIV-2 Ab not detected.A test result that is nonreactive does not exclude thepossibility of exposure to or infection with HIV-1 and/orHIV-2. Nonreactive results in this assay for individualswith prior exposure to HIV-1 and/or HIV-2 may be due toantigen and antibody levels that are below the limit ofdetection of this assay.The [facility] [facility] HIV Ag/Ab Combo assay result andsupplemental assay results should be interpreted inconjunction with the patient's clinical presentation,history and other laboratory results. If the results areinconsistent with clinical evidence, additional testing issuggested to confirm the result. Blood Venous blood specimen / Unknown 05/10/2024 10:05 AM EST 05/10/2024 2:29 PM EST us Lois Mcpherson MD LAB BLOOD ORDERABLES Final Re sult [facility] [address] [place] [phone] * (ABNORMAL) Lipid Panel, Standard (05/10/2024 10:05 AM EST) Triglycerides 104 <150 mg/dL [facility] Comment:Desirable Triglyceri de: less than 150 mg/dLBorderline High Triglyceride 150-199 mg/dLHigh Triglyceride: 200-499 mg/dLVery High Triglyceride: greater than or equal to 5OO mg/dL Cholesterol 214(H) <200 mg/dL [facility] Comment:Desirable Cholestero l: less than 200 mg/dLBorderline High Cholesterol: 200-239 mg/dLHigh Cholesterol: greater than 239 mg/dL LDL Cholesterol Calculated 147(H) <100 mg/dL [facility] Comment:Desirable LDL: less than 100 mg/dLNear Optimal/Above Optimal LDL: 110- 129 mg/dLBorderline High LDL: 130-159 mg/dLHigh LDL: 160-189 mg/dLVery High LDL: greater than or equal to 190 mg/dL HDL Cholesterol 47 >40 mg/dL [facility] Comment:Desirable HDL: great er than 40 mg/dL Note: This HDL assay may give artificially low results in patients with liver disease. Blood Venous blood specimen / Unknown 05/10/2024 10:05 AM EST 05/10/2024 2:29 PM EST us Lois Mcpherson MD LAB BLOOD ORDERABLES Final Re sult [facility] [address] [place] [address] [phone] from Last 3 Months or Most Recently Relevant to Health Maintenance [facility] Care Teams Finance Specialist Relationship Specialty Start Date End Date Lois Mcpherson MD [address] [place] [phone] PCP - General Family Medicine 05/09/24
--- OUTSIDE RECORDS SUMMARY | 2024-10-17 10:12 | XMS_ITS | Clinical Summary ---
Author Organization [facility] Address [address] [place] [address] Care Team Providers Care Pile Driving Supervisor Name Role Phone Unavailable Primary Care Provider Unavailabl e Source Comments PLEASE NOTE, if this patient is a minor, it may be UNLAWFUL to discuss sensitive information that is contained in these records (such as FAMILY PLANNING, MENTAL HEALTH or SUBSTANCE ABUSE) with the minor patient's parent or other person without the patient's specific authorization.[facility] Immunizations Immunization Administration Dates Next Due Moderna COVID-19 Vaccine, re d cap blue label, 12+ Primary Series 05/30/2021,10/08/2020,09/10/2020 Social History Tobacco Use Types Packs/Day Years Used Date Smoking Tobacco: Never Assessed Social Connections Answer Date Recorded Connectedness 0 06/13/2024 Financial Resource Strain Answer Date R ecorded Financial Resource Strain 0 2023 Stress Answer Date Recorded Stress 0 06/13/2024 Physical Activity Answer Date Recorded Physical Activity 0 06/13/2024 Food Insecurity Answer Date Recorded Food 0 06/13/2024 Transportation Needs Answer Date Record ed Transportation 0 06/13/2024 Housing Stability Answer Date Recorded Housing 0 06/13/2024 Safety and Environment Answer Date Jarvis rded Safety 0 06/13/2024 Utilities Answer Date Recorded Utilities 0 06/13/2024 Employment Answer Date Recorded Stress 0 06/13/2024 Sex and Gender Information Value Date Recorded Sex Assigned at Not on file Legal Sex Male 8:31 AM PDT Gender Identity Not on file Sexual Orientation Not on file Plan of Treatment Health Maintenance Due Date Last Done Comments Anxiety Screening 1965 Diabetes Screening 1963 Hepatitis C Screening 1963 Lipid Screening 1963 Tobacco Screening 1963 HIV Screening 1978 Hypertension Screening (#1) 1981 Imm-DTaP/Tdap/Td (1 - Tdap) 1982 CT Colonography 2008 Colonoscopy 2008 Colorectal Cancer Screening 2008 FIT/gFOBT 2008 Fecal DNA 2008 Flexible Sigmoidoscopy 2008 Imm-Zoster, Recombinant (1 of 2) 2013 [id number] ( season) 2024 05/30/2021, 10/08/2020, 09/10/2020 Imm-Influenza (#1) 2024 Alcohol and Drug Screen 06/15/2024 Depression Annual Screen 06/15/2024 Insurance [facility] [employer] Member Subscriber Plan / Payer (Ef fective 2020-Present) Name:Brandan Lguo Relation to Subscriber:Self Name:Brandan Lugo Payer ID:[id number] Group ID:[id number] Type:Medicaid Address: [facility] [address] [place] [address]
[2024-10-17 15:08] LABS: Alanine Aminotransferase 37 U/L (0-40); Albumin Level 4.2 g/dL (3.5-5.0); Anion Gap 11 (12-20); Aspartate Amino Transferase 34 U/L (5-37); Bilirubin Total 1.3 mg/dL (0.0-1.0); Blood Urea Nitrogen 12 mg/dL (9-16); Calcium 9.1 mg/dL (8.4-10.2); Carbon Dioxide 28 mmol/L (22-29); Chloride 106 mmol/L (96-108); Cholesterol 161 mg/dL (<200); Estimated Glomerular Filt Rate > 60; Glucose Random 86 mg/dL (60-115); HDL Cholesterol 51 mg/dL (>40); LDL Cholesterol Calculated 93 mg/dL (<100); Potassium 3.6 mmol/L (3.3-5.1); Sodium 141 mmol/L (135-145); Total Protein 7.4 g/dL (6.5-8.0); Triglycerides 86 mg/dL (<150)
[2024-10-17 16:07] LABS: Alkaline Phosphatase 76 U/L (39-117)
== END 2024-10-17 09:23 | disposition home or self-care (01) ==
LOC: HO.CHCLDS 09:22
PROVIDERS: Visit Provider Family Medicine
DX: E78.5 Hyperlipidemia, unspecified (principal)
CPT/HCPCS: 36415; 80053; 80061

== ENCOUNTER 2024-11-17 15:06 | Outpatient (REF) | payer MEDICAID, SELFPAY ==
[2024-11-17 17:43] LABS: MANUAL DIFF FLAG NO
[2024-11-17 17:49] LABS: Basophils Percent Auto 0.5 % (0-2); Eosinophils Absolute Auto 0.1 X10*3/uL (0.0-0.4); Eosinophils Percent Auto 1.6 % (0-4); Hematocrit 44.3 % (42.0-52.0); Hemoglobin 14.5 g/dl (14.0-18.0); Imm Gran Abs Auto 0.02 X10*3/uL (0.00-0.03); Imm Gran Pct Auto 0.3 % (0.0-0.4); Immature Retic Fraction 9.2 % (2.3-13.4); Lymphocytes Absolute Auto 1.6 X10*3/uL (1.2-4.9); Lymphocytes Percent Auto 22.5 % (20-40); Mean Corpuscular HGB Conc 32.7 g/dl (31.0-36.0); Mean Corpuscular Hemoglobin 30.5 pg (27.0-33.0); Mean Corpuscular Volume 93.1 fL (80.0-98.0); Mean Platelet Volume 11.8 fL (9.4-12.4); Monocytes Absolute Auto 0.5 X10*3/uL (0.1-1.2); Monocytes Percent Auto 6.9 % (2-11); Neutrophils Percent Auto 68.2 % (45-73); Platelet Count 195 X10*3/uL (160-400); Red Blood Count 4.76 X10*6/uL (4.60-5.80); Red Cell Distribution Width 12.5 % (11.0-16.0); Retic HGB Equivalent 34.5 pg (30.0-35.0); Reticulocyte Percent 1.5 % (0.5-1.8); White Blood Count 7.3 X10*3/uL (4.8-10.8)
--- OUTSIDE RECORDS SUMMARY | 2024-11-17 17:49 | XMS_ITS | Clinical Summary ---
Author Organization [facility] Address [address] [place] [address] Care Team Providers Care Mold Burner Name Role Phone Unavailable Primary Care Provider Unavailabl e Social History Tobacco Use Types Packs/Day Years Used Date Smoking Tobacco: Never Assessed Sex and Gender Information Value Date Recorded Sex Assigned at Not on file Legal Sex Male 9:59 AM EST Gender Identity Not on file Sexual Orientation Not on file Plan of Treatment Health Maintenance Due Date Last Done Comments DTaP,Tdap,and Td Vaccines (1 - Tdap) 1982 Pneumococcal Vaccine: 50+ Ye ars (1 of 1 - PCV) 2013 Zoster Vaccines (1 of 2) 2013 COVID-19 Vaccine ( - 2023-2 5 season) 2024 Influenza Vaccine (Season Ended) 2025 RSV Immunization Adult Patie nts (1 - 1-dose 75+ series) 2038 HIB Vaccines Aged Out No longer eligi [...] on patient's age to complete this topic MMR Vaccines Aged Out No longer eligi ble based on patient's age to complete this topic Meningococcal ACWY Vaccine Aged Out N o longer eligible based on patient's age to complete this topic Meningococcal B Vaccine Aged Out No l onger eligible based on patient's age to complete this topic Pneumococcal Vaccine: Pediat rics (0 to 5 Years) and At-Risk Patients (6 to 64 Years) Aged Out No longer eligible b ased on patient's age to complete this topic RSV Immunization Patients Un flora 20 months Aged Out No longer eligible b ased on patient's age to complete this topic Varicella Vaccines Aged Out No longer eligible based on patient's age to complete this topic
[2024-11-17 18:09] LABS: Alanine Aminotransferase 39 U/L (0-40); Albumin Level 4.5 g/dL (3.5-5.0); Alkaline Phosphatase 81 U/L (39-117); Aspartate Amino Transferase 33 U/L (5-37); Bilirubin Direct 0.3 mg/dL (0.0-0.5); Bilirubin Total 0.9 mg/dL (0.0-1.0); Lactate Dehydrogenase 273 U/L (118-273); Total Protein 7.8 g/dL (6.5-8.0)
[2024-11-17 18:20] LABS: Haptoglobin 186 mg/dL (40-268)
== END 2024-11-17 15:07 | disposition home or self-care (01) ==
LOC: HO.CHCLDS 15:06
PROVIDERS: PCP Family Medicine; Visit Provider Family Medicine
DX: E80.6 Other disorders of bilirubin metabolism (principal)
CPT/HCPCS: 36415; 80076; 83010; 83615; 85025; 85045; 86880